=== PATIENT | male | born 1960 | race Caucasian/White ===

== ENCOUNTER 2016-12-20 06:39 | Emergency (ER) | payer MEDICARE ==
[~2016-12-20] VITALS: Ht 172.7 cm; Wt 112.5 kg
[~2016-12-20 06:39] MED LIST: ALPR0.5T6 PO; ALPR1TAB6 PO; AMIT25TA PO; AMIT50TA PO; AMLO10TA2 PO; ASPI81TA9 PO; ATOR40TA59 PO; CHOL400T14 PO; CITA20TA5 PO; CYAN10005 PO; DIPH1TAB PO; DIPH1TAB5 PO; FEXO180T5 PO; FOLI1TAB16 PO; GABA600T2 PO; HYDR-2867 PO; LEVE250T30 PO; LEVE500T56 PO; LIDO2AMP IT; LISI10TA2 PO; MORP15TA3 PO; MORP60CA17 PO; NITR0.4T SL; OMEP20TA PO; OXYC15TA PO; OXYC5TAB PO; OXYM30TA PO; PHEN100C PO; PHEN100C4 PO; POTA20TA82 PO; PREG150C PO; PROAIR HFA8.5 GM INH; TEMA30CA PO; VENTOLIN HFA18 GM INH; WARF1TAB7 PO; WARF2TAB7 PO; WARF4TAB PO; WARF5TAB PO; WARF5TAB7 PO
--- NOTE | 2016-12-20 07:04 | EKG ---
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
--- NOTE | 2016-12-20 07:06 | PHYS DOC ---
Past Medical History Past Medical History: OR, Seizure, Stroke, Other Additional Past Medical Histor: stroke 2008, mi , "seizure activity" Past Surgical History: Knee Replacement, Other Additional Past Surgical Histo: open heart, left knee Smoking: Chew Alcohol Use: None Drug Use: None Adult General Chief Complaint Chief Complaint: SEIZURE HPI HPI Patient is a 56 year old male who presents with complaint is seizure activity this morning. He describes less than 1 minute of jerking and tightening of his extremities and difficulty breathing. States this happened twice this morning. States he has worsening of his chronic left-sided weakness since these episodes today. He denies headache, vision changes, dizziness, numbness, tingling, weakness, nausea, abdominal pain, fever or chills. States in the past 2 weeks he has been dealing with chills, emesis, and diarrhea that has been managed through his primary care doctor. He states he took his evening dose of medications around 1700 last night. Review of Systems Review of Systems Constitutional: Has fever and chills [] Eyes: Denies change in visual acuity, redness, or eye pain [] HENT: Denies nasal congestion or sore throat [] Respiratory: Denies cough or shortness of breath [] Cardiovascular: No additional information not addressed in HPI [] GI: Denies abdominal pain, bloody stools or bloody emesis [] : Denies dysuria or hematuria [] Musculoskeletal: Denies back pain [] Integument: Denies rash or skin lesions [] Neurologic: Denies headache or sensory changes [] Endocrine: Denies polyuria or polydipsia [] Current Medications Current Medications Current Medications Medications (Trade) Dose Ordered Sig/Jocelyn Start Time Stop Time Status Last Admin Dose Admin Acetaminophen (Tylenol) 500 mg 1X ONCE 12/20/16 07:45 12/20/16 07:46 DC 12/20/16 08:02 500 MG Levetiracetam (Keppra) 750 mg 1X ONCE 12/20/16 08:15 12/20/16 08:16 DC Phenytoin Sodium (Dilantin) 300 mg 1X ONCE 12/20/16 08:15 12/20/16 08:16 DC 12/20/16 08:42 300 MG Allergies Allergies Allergies Coded Allergies Type Severity Reaction Last Updated Verified cyclobenzaprine Allergy Intermediate 04/24/16 Yes naproxen Allergy Intermediate 04/24/16 Yes prednisone Allergy Intermediate 04/24/16 Yes Physical Exam Physical Exam Constitutional: Well developed, well nourished, no acute distress, non-toxic appearance. [] HENT: Normocephalic, atraumatic, bilateral external ears normal, oropharynx moist, no oral exudates, nose normal. [] Eyes: PERRLA, EOMI, conjunctiva normal, no discharge. [] Neck: Normal range of motion, no tenderness, supple, no stridor. [] Cardiovascular:Heart rate regular rhythm [] Lungs & Thorax: Bilateral breath sounds clear to auscultation [] Abdomen: Bowel sounds normal, soft, no tenderness. [] Skin: Warm, dry, no erythema, no rash. [] Back: No tenderness, no CVA tenderness. [] Extremities: LLE: No obvious deformity or discoloration; mild tenderness about fibula head and lateral tibial plateau without palpable or visual abnormality; Able to flex/ex/IR/ER hip, knee full rom, ankle df/pf, toes df/pf; No obvious knee joint laxity with stressing; SILT soto/sa/sp/dp/tib distributions; good dp and pt pulses equal bilaterally Neurologic: Alert and oriented X 3, 5-/5 strength of LUE and LLE with 5/5 strength in RUE and RLE, normal sensory function, no focal deficits noted, cranial nerves II through XII intact. [] Psychologic: Affect normal, judgement normal, mood normal. [] Current Patient Data Vital Signs Vital Signs Date Time Temp Pulse Resp B/P Pulse Ox O2 Delivery O2 Flow Rate FiO2 12/20/16 08:00 56 17 157/69 99 Room Air 12/20/16 06:49 98.5 2 98.5 Lab Values Laboratory Tests Test 12/20/16 07:19 White Blood Count 10.0x10^3/uL (4.0-11.0) Red Blood Count 4.26x10^6/uL (4.30-5.70) L Hemoglobin 12.7g/dL (13.0-17.5) L Hematocrit 39.1% (39.0-53.0) Mean Corpuscular Volume 92fL (79-100) Mean Corpuscular Hemoglobin 30pg (25-35) Mean Corpuscular Hemoglobin Concent 33g/dL (31-37) Red Cell Distribution Width 15.3% (11.5-14.5) H Platelet Count 241x10^3/uL (140-400) Neutrophils (%) (Auto) 65% (31-73) Lymphocytes (%) (Auto) 24% (24-48) Monocytes (%) (Auto) 9% (0-9) Eosinophils (%) (Auto) 2% (0-3) Basophils (%) (Auto) 1% (0-3) Neutrophils # (Auto) 6.5x10^3uL (1.8-7.7) Lymphocytes # (Auto) 2.4x10^3/uL (1.0-4.8) Monocytes # (Auto) 0.9x10^3/uL (0.0-1.1) Eosinophils # (Auto) 0.2x10^3/uL (0.0-0.7) Basophils # (Auto) 0.1x10^3/uL (0.0-0.2) Prothrombin Time 23.0SEC (11.7-14.0) H Prothrombin Time INR 2.2 (0.8-1.1) H PTT 37SEC (24-38) Sodium Level 146mmol/L (136-145) H Potassium Level 3.8mmol/L (3.5-5.1) Chloride Level 107mmol/L (98-107) Carbon Dioxide Level 28mmol/L (21-32) Anion Gap 11 (6-14) Blood Urea Nitrogen 11mg/dL (8-26) Creatinine 0.8mg/dL (0.7-1.3) Estimated GFR (Cockcroft-Gault) 99.3 Glucose Level 117mg/dL (70-99) H Calcium Level 8.7mg/dL (8.5-10.1) Total Bilirubin 0.2mg/dL (0.2-1.0) Direct Bilirubin 0.1mg/dL (0.0-0.2) Aspartate Amino Transferase (AST) 27U/L (15-37) Alanine Aminotransferase (ALT) 34U/L (16-63) Alkaline Phosphatase 141U/L (46-116) H Total Protein 7.3g/dL (6.4-8.2) Albumin 3.4g/dL (3.4-5.0) Phenytoin (Dilantin) Level 10.2mcg/mL (10.0-20.0) Phenytoin Last Dose Date 12/19/16 Phenytoin Last Dose Time 1700 Laboratory Tests 12/20/16 07:19 Laboratory Tests 12/20/16 07:19 EKG EKG EKG as interpreted by me as normal sinus rhythm, rate 66, no ST-T changes, normal intervals, no ectopy Radiology/Procedures Radiology/Procedures Head CT without contrast IMPRESSION: 1. Moderate-sized old right cerebral infarct. 2. No new intracranial abnormality is detected. DICTATED and SIGNED BY: LISETTE WHEAT MD DATE: 12/20/16 0749 Left knee xray as interpreted by me as no acute fracture or dislocation Course & Med Decision Making Course & Med Decision Making Pertinent Labs and Imaging studies reviewed. (See chart for details) Workup is unremarkable; including therapeutic phenytoin level. He has no seizure activity while in the ED. He complained of left knee pain and ankle pain upon discharge, and has a neg XR knee. He is ambulatory with a steady gait with cane. His has arrived to take him home. He wishes to take his seizure medications at home and refuses them here. He asks many times for narcotic pain medications for minor pain complaints. I discussed he does not have injuries that require narcotics. Return precautions given. He understands and agrees with plan. Dragon Disclaimer Dragon Disclaimer This electronic medical record was generated, in whole or in part, using a voice recognition dictation system. Departure Departure Impression: Primary Impression: Seizure-like activity Additional Impressions: Left knee pain Left-sided weakness Drug-seeking behavior Disposition: HOME, SELF-CARE Condition: STABLE Referrals: DUY ROBBINS (PCP) Patient Instructions: Seizure, Adult, [id number] Additional Instructions: Follow-up with your primary care doctor and neurologist. Return for any concerns. Problem Qualifiers Additional Impressions: Left knee pain Chronicity: acute Qualified Code: M25.562 - Pain in left knee Maeve RAMIREZ MD Dec 20, 2016 07:06
[2016-12-20 07:31] LABS: BASO # 0.1 x10^3/uL (0.0-0.2); BASO % 1 % (0-3); EOS % 2 % (0-3); HEMATOCRIT 39.1 % (39.0-53.0); HEMOGLOBIN 12.7 g/dL (13.0-17.5); LYMPH # 2.4 x10^3/uL (1.0-4.8); LYMPH % 24 % (24-48); MEAN CORPUSCULAR HEMOGLOBIN 30 pg (25-35); MEAN CORPUSCULAR HGB CONC 33 g/dL (31-37); MEAN CORPUSCULAR VOLUME 92 fL (79-100); MONO % 9 % (0-9); NEUT % 65 % (31-73); PLATELET COUNT 241 x10^3/uL (140-400); RED BLOOD COUNT 4.26 x10^6/uL (4.30-5.70); RED CELL DISTRIBUTION WIDTH 15.3 % (11.5-14.5)
[2016-12-20 07:37] LABS: INR 2.2 (0.8-1.1)
[2016-12-20 07:38] LABS: ANION GAP 11 (6-14); BLOOD UREA NITROGEN 11 mg/dL (8-26); CALCIUM 8.7 mg/dL (8.5-10.1); CARBON DIOXIDE 28 mmol/L (21-32); CHLORIDE 107 mmol/L (98-107); CREATININE 0.8 mg/dL (0.7-1.3); GFR 99.3; GLUCOSE 117 mg/dL (70-99); POTASSIUM 3.8 mmol/L (3.5-5.1); SODIUM 146 mmol/L (136-145)
[2016-12-20 07:45] LABS: ALBUMIN 3.4 g/dL (3.4-5.0); ALK PHOS 141 U/L (46-116); ALT (SGPT) 34 U/L (16-63); AST (SGOT) 27 U/L (15-37); DIRECT BILIRUBIN 0.1 mg/dL (0.0-0.2); TOTAL BILIRUBIN 0.2 mg/dL (0.2-1.0); TOTAL PROTEIN 7.3 g/dL (6.4-8.2)
[2016-12-20] MEDS ORDERED: ACETAMINOPHEN 500 MG TABLET PO ONE (07:45)
--- NOTE | 2016-12-20 07:55 | RAD ---
CT of the head without contrast, 12/20/2016: History: Left-sided weakness after seizure. Comparison is made to a study from 01/20/2016. A large area of encephalomalacia is again noted centered in the right parietal region compatible with an old infarct. The ventricles are within normal limits in size. There is no shift of the midline structures. There is no evidence of acute intracranial hemorrhage or mass effect. IMPRESSION: 1. Moderate-sized old right cerebral infarct. 2. No new intracranial abnormality is detected. PQRS Compliance Statement: One or more of the following individualized dose reduction techniques were utilized for this examination: 1. Automated exposure control 2. Adjustment of the mA and/or kV according to patient size 3. Use of iterative reconstruction technique
[2016-12-20 08:00] VITALS: BP 157/69
[2016-12-20] MEDS ORDERED: PHENYTOIN SODIUM EXTENDED 100 MG CAPSULE PO ONE (08:15)
[2016-12-20] MEDS ORDERED: LEVETIRACETAM 250 MG TABLET. PO ONE (08:15)
--- NOTE | 2016-12-20 08:43 | RAD ---
Indication: Knee surgery one month ago and left knee injury. Time of exam 8:34 AM 3 views left knee demonstrates postop changes of total knee arthroplasty. The prosthetic elements appear to be in good position. No fracture or loosening is detected. Impression: Postop left knee. No acute abnormality is detected.
== END 2016-12-20 09:45 | disposition home or self-care (01) ==
LOC: ER 06:39
DX: R56.9 Unspecified convulsions (principal); G89.29 Other chronic pain; M25.562 Pain in left knee; R53.1 Weakness; R19.7 Diarrhea, unspecified; I25.2 Old myocardial infarction; F17.220 Nicotine dependence, chewing tobacco, uncomplicated; Z76.5 Malingerer [conscious simulation]; Z86.73 Personal history of transient ischemic attack (TIA), and cerebral infarction without residual deficits; Z88.6 Allergy status to analgesic agent; Z88.8 Allergy status to other drugs, medicaments and biological substances
CPT/HCPCS: 36415; 70450; 73562; 80048; 80076; 80185; 85027; 85610; 85730; 93005; 99285-25

== ENCOUNTER 2016-12-22 13:44 | Emergency (ER) | payer MEDICARE ==
[~2016-12-22] VITALS: Ht 175.3 cm; Wt 112.5 kg
[2016-12-22] MEDS ORDERED: ASPIRIN 81 MG TAB.CHEW PO ONE (14:30)
[2016-12-22] MEDS ORDERED: IV NORMAL SALINE 1000ML BAG 1,000 ML IV SCH (14:30)
[2016-12-22] MEDS ORDERED: NITROGLYCERIN SUBLINGUAL 0.4 MG BOTTLE OF 25. SL PRN (14:30)
[2016-12-22] MEDS ORDERED: FENTANYL PF 100 MCG/2 ML VIAL. IV PRN ×2 (14:30→15:30)
--- NOTE | 2016-12-22 14:31 | EKG ---
[facility] [address] [place] [address] Test Date: 2016-12-22 Test Time: 13:51:42 Pat Name: RAMONA WELLS Department: Room: Gender: Male Biztalk Administrator: : 1960 Requested By: ZEENAT WALLACE Order Number: [id number] Reading MD: Billy Bell Measurements Intervals [place] Rate: 66 P: 45 [place]: 140 QRS: 48 QRSD: 92 T: 43 QT: 376 QTc: 396 Interpretive Statements SINUS RHYTHM Electronically Signed On 12-25-2016 10:21:19 STRAIGHT LINE EDGER by Billy Bell
[2016-12-22 14:32] LABS: BASO # 0.1 x10^3/uL (0.0-0.2); BASO % 1 % (0-3); EOS % 1 % (0-3); HEMATOCRIT 40.5 % (39.0-53.0); HEMOGLOBIN 13.3 g/dL (13.0-17.5); LYMPH # 2.2 x10^3/uL (1.0-4.8); LYMPH % 23 % (24-48); MEAN CORPUSCULAR HEMOGLOBIN 30 pg (25-35); MEAN CORPUSCULAR HGB CONC 33 g/dL (31-37); MEAN CORPUSCULAR VOLUME 92 fL (79-100); MONO % 7 % (0-9); NEUT % 68 % (31-73); PLATELET COUNT 235 x10^3/uL (140-400); RED BLOOD COUNT 4.41 x10^6/uL (4.30-5.70); RED CELL DISTRIBUTION WIDTH 14.8 % (11.5-14.5); WHITE BLOOD COUNT 9.6 x10^3/uL (4.0-11.0)
--- NOTE | 2016-12-22 14:44 | RAD ---
Portable chest, 12/22/2016: History: Chest pain Comparison is made to a study from 11/19/2016. The heart is at the upper limits of normal in size. The pulmonary vascularity is normal. No pulmonary infiltrates are seen. There is no evidence of pleural fluid. A surgical plate and screws is evident in the lower cervical spine. IMPRESSION: No acute cardiopulmonary abnormality is detected.
[2016-12-22 15:20] LABS: CREATININE 0.6 mg/dL (0.7-1.3); GFR 138.4; POTASSIUM 4.4 mmol/L (3.5-5.1)
[2016-12-22 15:26] LABS: ALBUMIN 3.4 g/dL (3.4-5.0); DIRECT BILIRUBIN 0.1 mg/dL (0.0-0.2); MAGNESIUM 2.3 mg/dL (1.8-2.4); TOTAL BILIRUBIN 0.3 mg/dL (0.2-1.0); TOTAL PROTEIN 7.8 g/dL (6.4-8.2)
[2016-12-22] MEDS ORDERED: ALPRAZOLAM 0.5 MG TABLET PO PRN (15:30)
[2016-12-22] MEDS ORDERED: ACETAMINOPHEN 500 MG TABLET PO PRN (15:30)
[2016-12-22] MEDS ORDERED: NON FORMULARY ITEM (Albuterol Sulfate (Proair Hfa Inhaler) 1 PUFF) INH PRN (15:30)
[2016-12-22] MEDS ORDERED: TEMAZEPAM 15 MG CAPSULE PO PRN (15:30)
[2016-12-22] MEDS ORDERED: OXYCODONE HCL 15 MG PO PRN (15:30)
[2016-12-22] MEDS ORDERED: hydrALAZINE 20 MG/ML VIAL. IVP PRN (15:30)
[2016-12-22] MEDS ORDERED: OXYCODONE IR 5 MG TABLET. PO PRN (15:30)
[2016-12-22] MEDS ORDERED: ONDANSETRON PF 4 MG/2 ML VIAL. IV PRN (15:30)
[2016-12-22] MEDS ORDERED: ALPRAZOLAM 1 MG TABLET PO PRN (15:30)
[2016-12-22 15:36] LABS: CKMB INDEX 0.6 % (0-4); CKMB MASS 0.7 ng/mL (0.0-3.6)
[2016-12-22 16:00] VITALS: BP 177/74
[2016-12-22] MEDS ORDERED: NON FORMULARY ITEM (Albuterol Sulfate (Ventolin Hfa Inhaler) 2 PUFF) INH SCH (16:00)
--- NOTE | 2016-12-22 16:08 | PHYS DOC ---
Past Medical History Past Medical History: VT, Seizure, Stroke, Other Additional Past Medical Histor: stroke 2008, mi , "seizure activity" Past Surgical History: Knee Replacement, Other Additional Past Surgical Histo: open heart, left knee Alcohol Use: None Drug Use: None Adult General Chief Complaint Chief Complaint: CHEST PAIN HPI HPI Patient is a 56 year old male who presents with complaint of chest pain. Patient is vague about onset of chest pain, however when asked if the chest pain was present when he awoke this morning he states "yes." Patient has history of coronary artery disease and history of stroke. Patient states that he did not want to come to the emergency department, however his home health nurse evaluated him this morning and called EMS to bring patient to the hospital for evaluation. Patient states he has substernal chest pain that radiates to his neck and jaw. Patient has mild shortness of breath but denies nausea or diaphoresis. Patient denies any fevers or productive cough. Patient rates his pain currently is 10/10. The patient states that the pain is pressure- like. Patient has not taken any medications to help with symptoms. Review of Systems Review of Systems Constitutional: Denies fever or chills [] Eyes: Denies change in visual acuity, redness, or eye pain [] HENT: Denies nasal congestion or sore throat [] Respiratory: Denies cough or shortness of breath [] Cardiovascular: Chest pain [] GI: Denies abdominal pain, nausea, vomiting, bloody stools or diarrhea [] : Denies dysuria or hematuria [] Musculoskeletal: Denies back pain or joint pain [] Integument: Denies rash or skin lesions [] Neurologic: Denies headache, focal weakness or sensory changes [] Endocrine: Denies polyuria or polydipsia [] Current Medications Current Medications Current Medications Medications (Trade) Dose Ordered Sig/Jocelyn Start Time Stop Time Status Last Admin Dose Admin Acetaminophen (Tylenol) 500 mg PRN QID PRN 12/22/16 15:30 12/22/16 16:33 DC Alprazolam (Xanax) 1 mg PRN Q6HRS PRN 12/22/16 15:30 12/22/16 16:33 DC Amitriptyline HCl (Elavil) 50 mg QHS 12/22/16 21:00 12/22/16 21:00 DC Aspirin (Children'S Aspirin) 324 mg 1X ONCE 1/27/17 14:30 12/22/16 14:31 DC 12/22/16 14:35 324 MG Atorvastatin Calcium (Lipitor) 40 mg DAILY 12/23/16 09:00 12/23/16 09:00 DC Citalopram Hydrobromide (Celexa) 20 mg DAILY 12/23/16 09:00 12/23/16 09:00 DC Cyanocobalamin (Vitamin B-12) 1,000 mcg DAILY 12/23/16 09:00 12/23/16 09:00 DC Fentanyl Citrate (Fentanyl 2ml Vial) 50 mcg PRN Q2HR PRN 12/22/16 15:30 12/22/16 16:33 DC Fentanyl Citrate 50 mcg 50 mcg PRN Q15MIN PRN 12/22/16 14:30 12/22/16 16:33 DC 12/22/16 14:37 50 MCG Folic Acid (Folic Acid) 1 mg DAILY 12/23/16 09:00 12/23/16 09:00 DC Hydralazine HCl (Apresoline) 10 mg QID 12/22/16 17:00 12/22/16 17:00 DC Levetiracetam (Keppra) 750 mg BID 12/22/16 21:00 12/22/16 21:00 DC Lisinopril (Prinivil) 10 mg DAILY 12/23/16 09:00 12/23/16 09:00 DC Morphine Sulfate (Ms Contin) 15 mg BID 12/22/16 21:00 12/22/16 21:00 DC Nitroglycerin (Nitrostat) 0.4 mg PRN Q5MIN PRN 12/22/16 14:30 12/22/16 16:33 DC Non-Formulary Medication 150 mg BID 12/22/16 21:00 12/22/16 21:00 DC Ondansetron HCl (Zofran) 4 mg PRN Q6HRS PRN 12/22/16 15:30 12/22/16 16:33 DC Oxycodone HCl (Roxicodone) 10 mg PRN Q6HRS PRN 12/22/16 15:30 12/22/16 16:33 DC Phenytoin Sodium (Dilantin) 100 mg BID 12/22/16 21:00 12/22/16 21:00 DC Sodium Chloride (Iv Sodium Chloride 0.9% 1000ml Bag) 1,000 ml @ 100 mls/hr Q10H 12/22/16 14:30 12/22/16 16:33 DC 12/22/16 14:35 100 MLS/HR Temazepam (Restoril) 30 mg HS PRN 12/22/16 15:30 12/22/16 16:33 DC Warfarin Sodium (Coumadin) 5 mg DAILY 12/23/16 09:00 12/23/16 09:00 DC Allergies Allergies Allergies Coded Allergies Type Severity Reaction Last Updated Verified cyclobenzaprine Allergy Intermediate 04/24/16 Yes naproxen Allergy Intermediate 04/24/16 Yes prednisone Allergy Intermediate 04/24/16 Yes Physical Exam Physical Exam Constitutional: Alert, afebrile, appears in chronically poor health. [] HENT: Normocephalic, atraumatic, bilateral external ears normal, oropharynx moist, no oral exudates, nose normal. [] Eyes: PERRLA, EOMI, conjunctiva normal, no discharge. [] Neck: Normal range of motion, no tenderness, supple, no stridor. [] Cardiovascular:Heart rate regular rhythm, no murmur [] Lungs & Thorax: Bilateral breath sounds clear to auscultation [] Abdomen: Bowel sounds normal, soft, no tenderness, no masses, no pulsatile masses. [] Skin: Warm, dry, no erythema, no rash. [] Back: No tenderness, no CVA tenderness. [] Extremities: No tenderness, no cyanosis, no clubbing, ROM intact, no edema. [] Neurologic: Alert and oriented X 3, normal motor function, normal sensory function, no focal deficits noted. [] Current Patient Data Vital Signs Vital Signs Date Time Temp Pulse Resp B/P Pulse Ox O2 Delivery O2 Flow Rate FiO2 12/22/16 16:00 56 17 177/74 97 Room Air 12/22/16 14:01 98.6 98.6 Lab Values Laboratory Tests Test 12/22/16 14:05 12/22/16 14:59 White Blood Count 9.6x10^3/uL (4.0-11.0) Red Blood Count 4.41x10^6/uL (4.30-5.70) Hemoglobin 13.3g/dL (13.0-17.5) Hematocrit 40.5% (39.0-53.0) Mean Corpuscular Volume 92fL (79-100) Mean Corpuscular Hemoglobin 30pg (25-35) Mean Corpuscular Hemoglobin Concent 33g/dL (31-37) Red Cell Distribution Width 14.8% (11.5-14.5) H Platelet Count 235x10^3/uL (140-400) Neutrophils (%) (Auto) 68% (31-73) Lymphocytes (%) (Auto) 23% (24-48) L Monocytes (%) (Auto) 7% (0-9) Eosinophils (%) (Auto) 1% (0-3) Basophils (%) (Auto) 1% (0-3) Neutrophils # (Auto) 6.5x10^3uL (1.8-7.7) Lymphocytes # (Auto) 2.2x10^3/uL (1.0-4.8) Monocytes # (Auto) 0.7x10^3/uL (0.0-1.1) Eosinophils # (Auto) 0.1x10^3/uL (0.0-0.7) Basophils # (Auto) 0.1x10^3/uL (0.0-0.2) Sodium Level 142mmol/L (136-145) Potassium Level 4.4mmol/L (3.5-5.1) Chloride Level 106mmol/L (98-107) Carbon Dioxide Level 29mmol/L (21-32) Anion Gap 7 (6-14) Blood Urea Nitrogen 8mg/dL (8-26) Creatinine 0.6mg/dL (0.7-1.3) L Estimated GFR (Cockcroft-Gault) 138.4 Glucose Level 87mg/dL (70-99) Calcium Level 9.0mg/dL (8.5-10.1) Magnesium Level 2.3mg/dL (1.8-2.4) Total Bilirubin 0.3mg/dL (0.2-1.0) Direct Bilirubin 0.1mg/dL (0.0-0.2) Aspartate Amino Transferase (AST) 38U/L (15-37) H Alanine Aminotransferase (ALT) 46U/L (16-63) Alkaline Phosphatase 149U/L (46-116) H Creatine Kinase 120U/L (39-308) Creatine Kinase MB (Mass) 0.7ng/mL (0.0-3.6) Creatine Kinase MB Relative Index 0.6% (0-4) Troponin I Quantitative < 0.017ng/mL (0.000-0.055) [id number]-Nkr-D-Type Natriuretic Peptide 62pg/mL (0-124) Total Protein 7.8g/dL (6.4-8.2) Albumin 3.4g/dL (3.4-5.0) Lipase 246U/L (73-393) Laboratory Tests 12/22/16 14:05 Laboratory Tests 12/22/16 14:59 EKG EKG Interpreted by me: Heart rate 66, sinus rhythm, normal intervals, normal axis, no acute ST/T-wave abnormalities present [] Radiology/Procedures Radiology/Procedures [facility] [address] [place] [address] IMAGING REPORT Signed PATIENT: RAMONA WELLS ACCOUNT: [id number] : 1960 LOCATION: ER AGE: 56 SEX: M EXAM STATUS: PRE ER ORD. PHYSICIAN: ZEENAT WALLACE MD REASON: chest pain PROCEDURE: PORTABLE CHEST 1V Portable chest, 12/22/2016: History: Chest pain Comparison is made to a study from 11/19/2016. The heart is at the upper limits of normal in size. The pulmonary vascularity is normal. No pulmonary infiltrates are seen. There is no evidence of pleural fluid. A surgical plate and screws is evident in the lower cervical spine. IMPRESSION: No acute cardiopulmonary abnormality is detected. DICTATED and SIGNED BY: LISETTE WHEAT MD DATE: 12/22/16 1441 CC: DUY ROBBINS; ZEENAT WALLACE MD ~ [] Course & Med Decision Making Course & Med Decision Making Pertinent Labs and Imaging studies reviewed. (See chart for details) The patient was given nitroglycerin and fentanyl in the emergency department. On reevaluation patient states that his pain has resolved at this time. Due to age and risk factors I spoke with patient regarding admission to the hospital. Patient states that he does not want to be admitted to the hospital was to go home. I did speak with Dr. Trimble as patient was recently admitted to the hospital one month ago. The patient had an MPI stress test that was negative. It was documented that the patient also displayed drug-seeking behavior at that time. After speaking with Dr. Trimble, she stated that the patient does not require admission and she has concerns that the patient may be manipulative. I sat with the patient and spoke with him again regarding treatment plan. The patient states that he does not want to be admitted to the hospital and is not concerned that he will have any issues of heart attack. One set of cardiac enzymes was drawn as the patient's blood was drawn after 4 hours from onset of symptoms. I recommended that the patient follow-up with Dr. Hall of cardiology in the next 3 days as the patient is currently pain-free and does not wish to be admitted to the hospital. Advised that the patient return to emergency department for any worsening symptoms. Patient voiced understanding and in agreement with treatment plan. Dragon Disclaimer Dragon Disclaimer This electronic medical record was generated, in whole or in part, using a voice recognition dictation system. Departure Departure Impression: Primary Impression: Chest pain Disposition: 01 HOME, SELF-CARE Condition: IMPROVED Referrals: DUY ROBBINS (PCP) HERBERTH HALL MD Patient Instructions: Chest Pain (Nonspecific) Additional Instructions: Your blood work and EKG did not show any evidence of a heart attack on today's visit. It is recommended due to your history that you follow-up closely with Dr. Hall of cardiology in the next 3 days. Return to the emergency department for any worsening symptoms. Problem Qualifiers Primary Impression: Chest pain Chest pain type: unspecified Qualified Code: R07.9 - Chest pain, unspecified ZEENAT WALLACE MD Dec 22, 2016 16:08
[2016-12-22] MEDS ORDERED: HYDRALAZINE 10 MG TABLET PO SCH (17:00)
[2016-12-22] MEDS ORDERED: NON FORMULARY ITEM (Gabapentin 600 MG) PO SCH (21:00)
[2016-12-22] MEDS ORDERED: MORPHINE ER 15 MG TABLET.ER PO SCH (21:00)
[2016-12-22] MEDS ORDERED: AMITRIPTYLINE HCL 50 MG TABLET PO SCH (21:00)
[2016-12-22] MEDS ORDERED: PHENYTOIN SODIUM EXTENDED 100 MG CAPSULE PO SCH (21:00)
[2016-12-22] MEDS ORDERED: PREGABALIN 150 MG PO SCH (21:00)
[2016-12-22] MEDS ORDERED: LEVETIRACETAM 250 MG TABLET. PO SCH (21:00)
[2016-12-23] MEDS ORDERED: LISINOPRIL 10 MG TABLET PO SCH (09:00)
[2016-12-23] MEDS ORDERED: FOLIC ACID 1 MG TABLET PO SCH (09:00)
[2016-12-23] MEDS ORDERED: CITALOPRAM 20 MG TABLET. PO SCH (09:00)
[2016-12-23] MEDS ORDERED: CYANOCOBALAMIN (VITAMIN B-12) 1,000 MCG TABLET. PO SCH (09:00)
[2016-12-23] MEDS ORDERED: ATORVASTATIN CALCIUM 40 MG TABLET. PO SCH (09:00)
[2016-12-23] MEDS ORDERED: WARFARIN 5 MG TABLET. PO SCH (09:00)
== END 2016-12-22 16:30 | disposition home or self-care (01) ==
LOC: ER 13:44
DX: R07.89 Other chest pain (principal); R06.02 Shortness of breath; I25.10 Atherosclerotic heart disease of native coronary artery without angina pectoris; I25.2 Old myocardial infarction; Z86.73 Personal history of transient ischemic attack (TIA), and cerebral infarction without residual deficits; Z98.890 Other specified postprocedural states; Z79.01 Long term (current) use of anticoagulants; Z79.899 Other long term (current) drug therapy; Z88.8 Allergy status to other drugs, medicaments and biological substances
CPT/HCPCS: 36415; 71010; 80048; 80076; 82553; 83690; 83735; 83880; 84484; 85027; 93005; 96361; 96374; 99285; J3010; J7030

== ENCOUNTER 2017-02-06 08:44 | Inpatient (IN) | payer MEDICARE ==
[~2017-02-06] VITALS: Ht 167.6 cm; Wt 99.8 kg
[2017-02-06] MEDS ORDERED: LORAZEPAM 2 MG/ML VIAL ONE (09:03)
[2017-02-06 09:20] LABS: BASO % 0 % (0-3); EOS % 0 % (0-3); HEMATOCRIT 38.2 % (39.0-53.0); HEMOGLOBIN 12.5 g/dL (13.0-17.5); LYMPH # 0.7 x10^3/uL (1.0-4.8); LYMPH % 6 % (24-48); MEAN CORPUSCULAR HEMOGLOBIN 30 pg (25-35); MEAN CORPUSCULAR HGB CONC 33 g/dL (31-37); MEAN CORPUSCULAR VOLUME 90 fL (79-100); MONO % 5 % (0-9); NEUT % 89 % (31-73); PLATELET COUNT 243 x10^3/uL (140-400); RED BLOOD COUNT 4.24 x10^6/uL (4.30-5.70); RED CELL DISTRIBUTION WIDTH 14.2 % (11.5-14.5); WHITE BLOOD COUNT 11.9 x10^3/uL (4.0-11.0)
--- NOTE | 2017-02-06 09:23 | PHYS DOC ---
Past Medical History Past Medical History: CVA, [place], Seizure, Stroke, Other Additional Past Medical Histor: stroke 2008, mi , "seizure activity" Past Surgical History: Coronary Bypass Surgery, Knee Replacement, Other Additional Past Surgical Histo: L KNEE Alcohol Use: None Drug Use: None Adult General Chief Complaint Chief Complaint: ALTERED MENTAL STATUS HPI HPI 56-year-old male presenting to the emergency department after being found by his spouse down in the living room unresponsive. On upon EMS arrival the patient was combative moving all extremities. It is unclear how long the patient was down for. He was admitted to our hospital approximately 2 months ago for confusion. He had EEG monitoring which did not show any evidence of seizure waveforms. Upon arrival to our emergency department the patient is combative moving all extremities and eyes spontaneously localizes to painful stimuli and speaks in understandable words but is nonsensical. Onset today. Location brain. Duration intermittent. No alleviating factor. Review of systems is negative for chest pain shortness of breath nausea vomiting diarrhea. All other review of systems is negative unless otherwise noted in history of present illness. Review of Systems Review of Systems SEE ABOVE. Current Medications Current Medications Current Medications Medications (Trade) Dose Ordered Sig/Jocelyn Start Time Stop Time Status Last Admin Dose Admin Lorazepam (Ativan) 2 mg STK-MED ONCE 02/06/17 09:03 02/06/17 09:04 DC Allergies Allergies Allergies Coded Allergies Type Severity Reaction Last Updated Verified cyclobenzaprine Allergy Intermediate 04/24/16 Yes naproxen Allergy Intermediate 04/24/16 Yes prednisone Allergy Intermediate 04/24/16 Yes Physical Exam Physical Exam Constitutional: Well developed, well nourished, no acute distress, non-toxic appearance. HENT: Normocephalic, atraumatic, bilateral external ears normal, oropharynx moist, no oral exudates, nose normal. [] Eyes: PERRLA, EOMI, conjunctiva normal, no discharge. Neck: Normal range of motion, no tenderness, supple, no stridor. [] Cardiovascular:Heart rate regular rhythm, no murmur Lungs & Thorax: Bilateral breath sounds clear to auscultation [] Abdomen: Bowel sounds normal, soft, no tenderness, no masses, no pulsatile masses. Skin: Warm, dry, no erythema, no rash. [] Back: No tenderness, no CVA tenderness. Extremities: No tenderness, no cyanosis, no clubbing, ROM intact, no edema. [] Neurologic: Mental status: combative moving all extremities spontaneously localizes to painful stimuli and speaks in understandable words but is nonsensical. Cranial nerves: Extraocular movements intact, eyebrows rosetta bilaterally smile symmetric, uvula elevation, shoulder shrug intact, tongue protrusion normal DTRs: 2+ Sensation: unable to assess Strength: 5/5 in upper and lower extremities bilaterally Psychologic: Affect normal, judgement normal, mood normal. Current Patient Data Vital Signs Vital Signs Date Time Temp Pulse Resp B/P Pulse Ox O2 Delivery O2 Flow Rate FiO2 02/06/17 08:44 97.9 107 22 201/84 99 Room Air 97.9 Lab Values Laboratory Tests Test 02/06/17 08:52 02/06/17 09:00 Glucose (Fingerstick) 154mg/dL (70-99) H White Blood Count 11.9x10^3/uL (4.0-11.0) H Red Blood Count 4.24x10^6/uL (4.30-5.70) L Hemoglobin 12.5g/dL (13.0-17.5) L Hematocrit 38.2% (39.0-53.0) L Mean Corpuscular Volume 90fL (79-100) Mean Corpuscular Hemoglobin 30pg (25-35) Mean Corpuscular Hemoglobin Concent 33g/dL (31-37) Red Cell Distribution Width 14.2% (11.5-14.5) Platelet Count 243x10^3/uL (140-400) Neutrophils (%) (Auto) 89% (31-73) H Lymphocytes (%) (Auto) 6% (24-48) L Monocytes (%) (Auto) 5% (0-9) Eosinophils (%) (Auto) 0% (0-3) Basophils (%) (Auto) 0% (0-3) Neutrophils # (Auto) 10.5x10^3uL (1.8-7.7) H Lymphocytes # (Auto) 0.7x10^3/uL (1.0-4.8) L Monocytes # (Auto) 0.6x10^3/uL (0.0-1.1) Eosinophils # (Auto) 0.0x10^3/uL (0.0-0.7) Basophils # (Auto) 0.0x10^3/uL (0.0-0.2) Segmented Neutrophils % 84% (35-66) H Band Neutrophils % 6% (0-9) Lymphocytes % 5% (24-48) L Monocytes % 5% (0-10) Platelet Estimate Adequate (ADEQUATE) Sodium Level 140mmol/L (136-145) Potassium Level 4.1mmol/L (3.5-5.1) Chloride Level 102mmol/L (98-107) Carbon Dioxide Level 27mmol/L (21-32) Anion Gap 11 (6-14) Blood Urea Nitrogen 9mg/dL (8-26) Creatinine 0.7mg/dL (0.7-1.3) Estimated GFR (Cockcroft-Gault) 115.8 Glucose Level 167mg/dL (70-99) H Serum Osmolality 290mOsm/Kg (279-304) Calcium Level 9.0mg/dL (8.5-10.1) Total Bilirubin 0.3mg/dL (0.2-1.0) Direct Bilirubin < 0.1mg/dL (0.0-0.2) Aspartate Amino Transferase (AST) 35U/L (15-37) Alanine Aminotransferase (ALT) 32U/L (16-63) Alkaline Phosphatase 190U/L (46-116) H Troponin I Quantitative < 0.017ng/mL (0.000-0.055) Total Protein 8.0g/dL (6.4-8.2) Albumin 3.4g/dL (3.4-5.0) Lipase 124U/L (73-393) Salicylates Level < 2.8mg/dL (2.8-20.0) L Salicylate Last Dose Date Unknown Salicylate Last Dose Time Unknown Acetaminophen Level < 2.00mcg/ml (10-30) L Acetaminophen Last Dose Date Unknow Acetaminophen Last Dose Time Unknown Laboratory Tests 02/06/17 09:00 Laboratory Tests 02/06/17 09:00 EKG EKG [] Radiology/Procedures Radiology/Procedures [] Course & Med Decision Making Course & Med Decision Making Pertinent Labs and Imaging studies reviewed. (See chart for details) [] 48-year-old male presenting to the emergency department with confusion. On arrival the patient was afebrile with mild tachycardia and hypertension. The patient's blood pressure likely represents his agitated state has he was moving around and exerting himself during the blood pressure measurements. Blood work obtained. Patient with mild leukocytosis. Hemoglobin mildly anemic. Chemistry panel unremarkable. Blood glucose normal. Head CT unremarkable. Patient was given 2mg of Ativan in the emergency department which seemed to bring his tachycardia down and blood pressure as well. He seemed to calm down. Given the patient's mental state, the patient was subsequently admitted to our hospital for further evaluation workup and care. Neurology consult placed. Dragon Disclaimer Dragon Disclaimer This electronic medical record was generated, in whole or in part, using a voice recognition dictation system. Departure Departure Impression: Primary Impression: Altered mental status Disposition: ADMITTED INPATIENT Admitting Physician: Maninder Qureshi Condition: STABLE Referrals: DUY ROBBINS (PCP) GARY COLON MD Feb 06, 2017 09:23
[2017-02-06 09:31] LABS: ANION GAP 11 (6-14); BLOOD UREA NITROGEN 9 mg/dL (8-26); CARBON DIOXIDE 27 mmol/L (21-32); CHLORIDE 102 mmol/L (98-107); CREATININE 0.7 mg/dL (0.7-1.3); GFR 115.8; GLUCOSE 167 mg/dL (70-99); POTASSIUM 4.1 mmol/L (3.5-5.1); SODIUM 140 mmol/L (136-145)
[2017-02-06 09:36] LABS: ALBUMIN 3.4 g/dL (3.4-5.0); ALK PHOS 190 U/L (46-116); ALT (SGPT) 32 U/L (16-63); AST (SGOT) 35 U/L (15-37); DIRECT BILIRUBIN < 0.1 mg/dL (0.0-0.2); TOTAL BILIRUBIN 0.3 mg/dL (0.2-1.0)
[2017-02-06] MEDS ORDERED: MORPHINE SULFATE 2 MG/ML DISP.SYRIN. IV PRN (09:45)
[2017-02-06] MEDS ORDERED: LORAZEPAM 2 MG/ML VIAL IV ONE (09:45)
[2017-02-06] MEDS ORDERED: ONDANSETRON PF 4 MG/2 ML VIAL. IV PRN ×2 (09:45→14:15)
--- NOTE | 2017-02-06 09:45 | RAD ---
Indication: Altered mental status. Technique: Noncontrast CT head was obtained. Comparison is from December 23, 2016. One or more of the following individualized dose reduction techniques were utilized for this examination: 1. Automated exposure control 2. Adjustment of the mA and/or kV according to patient size 3. Use of iterative reconstruction technique Findings: Large area of encephalomalacia in a right MCA distribution is similar to prior. There is no CT evidence of an acute infarct. There is ex vacuo dilation of the right lateral ventricle. The ventricles and sulci are within normal limits for age. There is no acute intracranial hemorrhage or extra-axial fluid collection. There is no mass effect or midline shift. Campos-white differentiation is preserved. Paranasal sinuses and mastoid air cells are clear. Impression: 1. No acute intracranial findings. 2. Stable examination. Large area of encephalomalacia involving the right frontal and parietal lobes.
[2017-02-06 10:26] LABS: BILIRUBIN,URINE NEGATIVE (NEG); GLUCOSE,URINE NEGATIVE (NEG); NITRITE,URINE NEGATIVE (NEG); PH,URINE 7.5; PROTEIN,URINE NEGATIVE (NEG-TRACE); UROBILINOGEN,URINE 0.2 mg/dL (0.2 mg/dL)
--- NOTE | 2017-02-06 10:29 | ACF ---
Admission Forms Criteria MENTAL STATUS CHANGE Clinical Indications for Inpatient Care (Place 'X' for any and all applicable criteria): Ongoing inpatient care may be needed for ANY ONE of the following(1)(2)(3)(5)(6) : [X]I. Suspected serious etiology (eg, medical disorder, MACHINE REPAIRER MAINTENANCE event) of mental status change [ ]II. Danger to self or others not manageable at lower level of care [ ]III. Grave disability (eg, inability to perform self care necessary at lower level of care) [ ]IV. Agitation or inappropriate behavior interfering with care for primary condition (eg, attempting to discontinue lines or drains prematurely, unable to cooperate with respiratory care) [ ]V. Delirium [A] [D][E] as described by ANY ONE of the following(26): [ ]a) Delirium due to alcohol or sedative [F] withdrawal [ ]b) Delirium of uncertain etiology that has not responded to appropriate empiric treatment [ ]c) Delirium that prevents performance of a life-sustaining function (eg, feeding or hydrating oneself) [ ]. General contraindications and/or Inappropriate clinical situations for Observational Care in patients with Mental Status Change, when ANY ONE of the following is required: [ ]a) Prediction of prolongation of LOS based on ANY ONE of the following may be considered as a contraindication for observational care 2, 3, 4, 5, 6, 7, 8, 9, 10, 11 [ ]i) Age > 65 yrs. [ ]ii) Patient arriving by ambulance [ ]iii) Patient with high acuity [ ]iv) Patient requiring vital sign monitoring [ ]v) Patient on IV medication [ ]b) Systolic blood pressures 180mmHg 3,12 [ ]c) Patient with altered mental status including delirium and other alteration of consciousness, (3) [ ]d) Patient whose discharge disposition will be to a residential home or rehabilitation home should not be managed in Emergency Department Observation Unit. CMS rule requires 3 days hospital stay before such placement.3,13 [ ]e) Patient with failure to thrive due to broad array of etiologies 3,16,17 [ ]f) Inability to ambulate 3,14 Extended stay beyond goal length of stay for the primary condition may be needed until ALL of the following are present(3)(5): [ ]a) Underlying medical etiology of mental status change is absent, or has been established and adequately treated [ ]b) Danger to self or others is absent or manageable at lower level of care. [ ]c) Behavior crisis management, including physical or chemical restraints, is not required or available at lower level of car [ ]d) Substance or alcohol withdrawal is absent or manageable at lower level of care. [ ]e) Behavioral symptoms (eg, agitation, somnolence, inappropriate behavior) are absent, or are manageable at lower level of care. The original [facility] content created by [facility] has been revised. The portions of the content which have been revised are identified through the use of italic text or in bold, and [facility] has neither reviewed nor approved the modified material. All other unmodified content is copyright [facility]. Please see references footnoted in the original [facility] edition 2016 Admission Criteria Met?: Yes MEGAN MEANS Feb 06, 2017 10:29
[2017-02-06 10:33] LABS: BARBITURATES NEG (NEG); BENZODIAZEPINES NEG (NEG); CANNABINOIDS NEG (NEG); COCAINE NEG (NEG); ETHANOL, URINE NEG (NEG); METHADONE NEG (NEG); OPIATES POS (NEG); PHENCYCLIDINE NEG (NEG)
[2017-02-06 10:36] LABS: BACTERIA,URINE 0 /HPF (0-FEW); SQUAMOUS EPITHELIAL CELL,UR FEW /LPF; WBC,URINE OCC /HPF (0-4)
[2017-02-06 10:55] LABS: PLT ESTIMATE ADEQUATE (ADEQUATE)
[2017-02-06 12:00] VITALS: BP 193/76
[2017-02-06] MEDS ORDERED: NALOXONE 0.4 MG/ML VIAL. IV ONE (14:00)
--- NOTE | 2017-02-06 14:00 | PDOC1 ---
History and Physical Past Medical History Cardiovascular: HTN Pulmonary: Bronchitis Heme/Onc: Anemia NOS Psych: No pertinent hx Past Surgical History Past Surgical History: Total knee replacement Family History Family History: No Significant, Other Social History ALCOHOL: none Drugs: None Current Problem List Problem List Problems Medical Problems: (1) Altered mental status Status: Acute Current Medications Current Medications Current Medications Medications (Trade) Dose Ordered Sig/Jocelyn Start Time Stop Time Status Last Admin Dose Admin Lorazepam (Ativan) 2 mg 1X ONCE 02/06/17 09:45 02/06/17 09:46 DC 02/06/17 09:02 2 MG Morphine Sulfate 2 mg PRN Q2HR PRN 02/06/17 09:45 02/07/17 09:44 Ondansetron HCl (Zofran) 4 mg PRN Q8HRS PRN 02/06/17 09:45 02/07/17 09:44 Allergies Allergies Allergies Coded Allergies Type Severity Reaction Last Updated Verified cyclobenzaprine Allergy Intermediate 04/24/16 Yes naproxen Allergy Intermediate 04/24/16 Yes prednisone Allergy Intermediate 04/24/16 Yes ROS Review of System not able to obtain due to severity Physical Exam Physical Exam GEN.: No apparent distress. somnolent, drowsy HEENT: Head is normocephalic, atraumatic NECK: Supple. no jvd LUNGS: Clear to auscultation. normal airflow HEART: RRR, S1, S2 present. Peripheral pulses intact ABDOMEN: Soft, nontender. Positive bowel sounds. EXTREMITIES: Without any cyanosis. NEUROLOGIC: lethargic, not following commands. PSYCHIATRIC: SKIN: Vitals Vitals Vital Signs Date Time Temp Pulse Resp B/P Pulse Ox O2 Delivery O2 Flow Rate FiO2 02/06/17 12:00 98.0 106 24 193/76 97 Room Air 98.0 Labs Labs Laboratory Tests Test 02/06/17 08:52 02/06/17 09:00 02/06/17 09:45 02/06/17 10:17 Glucose (Fingerstick) 154mg/dL (70-99) White Blood Count 11.9x10^3/uL (4.0-11.0) Red Blood Count 4.24x10^6/uL (4.30-5.70) Hemoglobin 12.5g/dL (13.0-17.5) Hematocrit 38.2% (39.0-53.0) Mean Corpuscular Volume 90fL (79-100) Mean Corpuscular Hemoglobin 30pg (25-35) Mean Corpuscular Hemoglobin Concent 33g/dL (31-37) Red Cell Distribution Width 14.2% (11.5-14.5) Platelet Count 243x10^3/uL (140-400) Neutrophils (%) (Auto) 89% (31-73) Lymphocytes (%) (Auto) 6% (24-48) Monocytes (%) (Auto) 5% (0-9) Eosinophils (%) (Auto) 0% (0-3) Basophils (%) (Auto) 0% (0-3) Neutrophils # (Auto) 10.5x10^3uL (1.8-7.7) Lymphocytes # (Auto) 0.7x10^3/uL (1.0-4.8) Monocytes # (Auto) 0.6x10^3/uL (0.0-1.1) Eosinophils # (Auto) 0.0x10^3/uL (0.0-0.7) Basophils # (Auto) 0.0x10^3/uL (0.0-0.2) Segmented Neutrophils % 84% (35-66) Band Neutrophils % 6% (0-9) Lymphocytes % 5% (24-48) Monocytes % 5% (0-10) Platelet Estimate Adequate (ADEQUATE) Sodium Level 140mmol/L (136-145) Potassium Level 4.1mmol/L (3.5-5.1) Chloride Level 102mmol/L (98-107) Carbon Dioxide Level 27mmol/L (21-32) Anion Gap 11 (6-14) Blood Urea Nitrogen 9mg/dL (8-26) Creatinine 0.7mg/dL (0.7-1.3) Estimated GFR (Cockcroft-Gault) 115.8 Glucose Level 167mg/dL (70-99) Serum Osmolality 290mOsm/Kg (279-304) Calcium Level 9.0mg/dL (8.5-10.1) Total Bilirubin 0.3mg/dL (0.2-1.0) Direct Bilirubin < 0.1mg/dL (0.0-0.2) Aspartate Amino Transf (AST/SGOT) 35U/L (15-37) Alanine Aminotransferase (ALT/SGPT) 32U/L (16-63) Alkaline Phosphatase 190U/L (46-116) Troponin I Quantitative < 0.017ng/mL (0.000-0.055) Total Protein 8.0g/dL (6.4-8.2) Albumin 3.4g/dL (3.4-5.0) Lipase 124U/L (73-393) Salicylates Level < 2.8mg/dL (2.8-20.0) Salicylate Last Dose Date Unknown Salicylate Last Dose Time Unknown Acetaminophen Level < 2.00mcg/ml (10-30) Acetaminophen Last Dose Date Unknow Acetaminophen Last Dose Time Unknown Ammonia 15mcmol/L (11-34) Urine Collection Type U cath Urine Color Yellow Urine Clarity Clear Urine pH 7.5 Urine Specific [place] 1.015 Urine Protein Negativemg/dL (NEG-TRACE) Urine Glucose (UA) Negativemg/dL (NEG) Urine Ketones (Stick) Negativemg/dL (NEG) Urine Blood Negative (NEG) Urine Nitrite Negative (NEG) Urine Bilirubin Negative (NEG) Urine Urobilinogen Dipstick 0.2mg/dL (0.2 mg/dL) Urine Leukocyte Esterase Negative (NEG) Urine RBC 3-5/HPF (0-2) Urine WBC Occ/HPF (0-4) Urine Squamous Epithelial Cells Few/LPF Urine Renal Epithelial Cells Few/LPF Urine Bacteria 0/HPF (0-FEW) Urine Opiates Screen Pos (NEG) Urine Methadone Screen Neg (NEG) Urine Barbiturates Neg (NEG) Urine Phencyclidine Screen Neg (NEG) Urine Amphetamine/Methamphetamine Neg (NEG) Urine Benzodiazepines Screen Neg (NEG) Urine Cocaine Screen Neg (NEG) Urine Cannabinoids Screen Neg (NEG) Urine Ethyl Alcohol Neg (NEG) Laboratory Tests Test 02/06/17 08:52 02/06/17 09:00 02/06/17 09:45 02/06/17 10:17 Glucose (Fingerstick) 154mg/dL (70-99) White Blood Count 11.9x10^3/uL (4.0-11.0) Red Blood Count 4.24x10^6/uL (4.30-5.70) Hemoglobin 12.5g/dL (13.0-17.5) Hematocrit 38.2% (39.0-53.0) Mean Corpuscular Volume 90fL (79-100) Mean Corpuscular Hemoglobin 30pg (25-35) Mean Corpuscular Hemoglobin Concent 33g/dL (31-37) Red Cell Distribution Width 14.2% (11.5-14.5) Platelet Count 243x10^3/uL (140-400) Neutrophils (%) (Auto) 89% (31-73) Lymphocytes (%) (Auto) 6% (24-48) Monocytes (%) (Auto) 5% (0-9) Eosinophils (%) (Auto) 0% (0-3) Basophils (%) (Auto) 0% (0-3) Neutrophils # (Auto) 10.5x10^3uL (1.8-7.7) Lymphocytes # (Auto) 0.7x10^3/uL (1.0-4.8) Monocytes # (Auto) 0.6x10^3/uL (0.0-1.1) Eosinophils # (Auto) 0.0x10^3/uL (0.0-0.7) Basophils # (Auto) 0.0x10^3/uL (0.0-0.2) Segmented Neutrophils % 84% (35-66) Band Neutrophils % 6% (0-9) Lymphocytes % 5% (24-48) Monocytes % 5% (0-10) Platelet Estimate Adequate (ADEQUATE) Sodium Level 140mmol/L (136-145) Potassium Level 4.1mmol/L (3.5-5.1) Chloride Level 102mmol/L (98-107) Carbon Dioxide Level 27mmol/L (21-32) Anion Gap 11 (6-14) Blood Urea Nitrogen 9mg/dL (8-26) Creatinine 0.7mg/dL (0.7-1.3) Estimated GFR (Cockcroft-Gault) 115.8 Glucose Level 167mg/dL (70-99) Serum Osmolality 290mOsm/Kg (279-304) Calcium Level 9.0mg/dL (8.5-10.1) Total Bilirubin 0.3mg/dL (0.2-1.0) Direct Bilirubin < 0.1mg/dL (0.0-0.2) Aspartate Amino Transf (AST/SGOT) 35U/L (15-37) Alanine Aminotransferase (ALT/SGPT) 32U/L (16-63) Alkaline Phosphatase 190U/L (46-116) Troponin I Quantitative < 0.017ng/mL (0.000-0.055) Total Protein 8.0g/dL (6.4-8.2) Albumin 3.4g/dL (3.4-5.0) Lipase 124U/L (73-393) Salicylates Level < 2.8mg/dL (2.8-20.0) Salicylate Last Dose Date Unknown Salicylate Last Dose Time Unknown Acetaminophen Level < 2.00mcg/ml (10-30) Acetaminophen Last Dose Date Unknow Acetaminophen Last Dose Time Unknown Ammonia 15mcmol/L (11-34) Urine Collection Type U cath Urine Color Yellow Urine Clarity Clear Urine pH 7.5 Urine Specific [place] 1.015 Urine Protein Negativemg/dL (NEG-TRACE) Urine Glucose (UA) Negativemg/dL (NEG) Urine Ketones (Stick) Negativemg/dL (NEG) Urine Blood Negative (NEG) Urine Nitrite Negative (NEG) Urine Bilirubin Negative (NEG) Urine Urobilinogen Dipstick 0.2mg/dL (0.2 mg/dL) Urine Leukocyte Esterase Negative (NEG) Urine RBC 3-5/HPF (0-2) Urine WBC Occ/HPF (0-4) Urine Squamous Epithelial Cells Few/LPF Urine Renal Epithelial Cells Few/LPF Urine Bacteria 0/HPF (0-FEW) Urine Opiates Screen Pos (NEG) Urine Methadone Screen Neg (NEG) Urine Barbiturates Neg (NEG) Urine Phencyclidine Screen Neg (NEG) Urine Amphetamine/Methamphetamine Neg (NEG) Urine Benzodiazepines Screen Neg (NEG) Urine Cocaine Screen Neg (NEG) Urine Cannabinoids Screen Neg (NEG) Urine Ethyl Alcohol Neg (NEG) VTE Prophylaxis Ordered VTE Prophylaxis Devices: Yes VTE Pharmacological Prophylaxi: Yes ANGEL FOUNTAIN MD Feb 06, 2017 14:00
[2017-02-06] MEDS ORDERED: PROM25TA10 PO (14:06)
[2017-02-06] MEDS ORDERED: DULO60CA6 PO (14:06)
[2017-02-06] MEDS ORDERED: ONDA8TAB9 PO (14:06)
[2017-02-06] MEDS ORDERED: DIPH1TAB PO (14:06)
[2017-02-06] MEDS ORDERED: ALBUTEROL SULFATE 2.5 MG/3 ML NEBU. NEB PRN (14:15)
[2017-02-06] MEDS ORDERED: hydrALAZINE 20 MG/ML VIAL. IVP PRN (14:15)
[2017-02-06] MEDS ORDERED: ACETAMINOPHEN 325 MG TABLET. PO PRN (14:15)
--- NOTE | 2017-02-06 14:29 | PDOC2 ---
NEUROLOGY CONSULT Date of Admission Date of Admission DATE: 02/06/17 TIME: 14:22 Reason for Consult Reason for Consult: Altered mental status Referring Physician Referring Physician: Dr. Qureshi PCP: Dr. Rocha Source Source: Chart review History of Present Illness History of Present Illness The patient is a 56-year-old right-handed male admitted with altered mental status. He had a stroke in 2009 leaving him with left-hemiparesis and has had seizures since then. He was admitted in July with several seizures. Routine EEG was negative. Long-term monitoring, 08/21-, demonstrated 2 clinical seizures not accompanied by epileptic abnormalities, and he was thought to have possible psychogenic nonepileptic seizures. He was admitted in August for more seizures, EEG then was negative. He was back in November of this year for seizures. Dr. Marley saw him for all of these admissions and feels that these are nonepileptic seizures. He was continued on levetiracetam and phenytoin. He returns this morning found down in the living room unresponsive. He was combative, moving all extremities. He remained combative in the emergency department, speaking nonsense. He was combative. He was given some Ativan, which did calm him down some. I did leave a message with the patient's . Past Medical History Cardiovascular: HTN, Hyperlipidemia, Other ( deep vein thrombosis on warfarin) Pulmonary: Asthma CENTRAL NERVOUS SYSTEM: CVA, Periperal neuropathy, Seizure GI: GERD, Irritable bowel disease, Other (dysphagia) Heme/Onc: Cancer (colon) Psych: Anxiety, Depression Musculoskeletal: low back pain (DDD), Osteoarthritis Rheumatologic: Fibromyalgia ENT: Other (Hearing loss) Past Surgical History Past Surgical History: Cholecystectomy, Total knee replacement (left), Colon Resection Family History Family History: No pertinent hx Social History Social History , otherwise unattainable Current Medications Current Medications Current Medications Lorazepam (Ativan) 2 mg STK-MED ONCE .ROUTE ; Start 02/06/17 at 09:03; Stop at 09:04; Status DC Ondansetron HCl (Zofran) 4 mg PRN Q8HRS PRN IV NAUSEA/VOMITING; Start 02/06/17 at 09:45; Stop 02/07/17 at 09:44 Morphine Sulfate 2 mg PRN Q2HR PRN IV PAIN; Start 02/06/17 at 09:45; Stop 02/07 at 09:44 Lorazepam (Ativan) 2 mg 1X ONCE IV Last administered on 02/06/17 09:02; Start 02/06/17 at 09:45; Stop 02/06/17 at 09:46; Status DC Naloxone HCl (Narcan) 0.4 mg 1X ONCE IV Last administered on 02/06/17 14:10; Start 02/06/17 at 14:00; Stop 02/06/17 at 14:05; Status DC Acetaminophen (Tylenol) 325 mg PRN Q6HRS PRN PO MILD PAIN / TEMP; Start at 14:15 Acetaminophen/ Hydrocodone Bitart (Lortab 5/325) 1 tab PRN Q6HRS PRN PO MODERATE TO SEVERE PAIN; Start 02/06/17 at 14:15 Hydralazine HCl (Apresoline) 10 mg PRN Q4HRS PRN IVP ELEVATED BP, SEE COMMENTS ; Start 02/06/17 at 14:15 Ondansetron HCl (Zofran) 4 mg PRN Q8HRS PRN IV NAUSEA/VOMITING; Start 02/06/17 at 14:15 Albuterol Sulfate (Ventolin Neb Soln) 2.5 mg PRN Q4HRS PRN NEB SHORTNESS OF BREATH; Start 02/06/17 at 14:15 Active Scripts Active Keppra (Levetiracetam) 250 Mg Tablet 750 Mg PO BID Dilantin (Phenytoin Sodium Extended) 100 Mg Capsule 3 Cap PO BID Vitamin B-12 (Cyanocobalamin (Vitamin B-12)) 1,000 Mcg Tablet 1,000 Mcg PO DAILY Gabapentin 600 Mg Tablet 600 Mg PO TID Alprazolam 0.5 Mg Tablet 0.5 Mg PO PRN Q6HRS PRN Reported Lomotil Tablet (Diphenoxylate Hcl/Atropine) 1 Each Tablet 1 Tab PO Q6HRS Promethazine Hcl 25 Mg Tablet 1 Tab PO PRN Q6HRS Zofran (Ondansetron Hcl) 8 Mg Tablet 8 Mg PO TID PRN PRN Cymbalta (Duloxetine Hcl) 60 Mg Capsule.dr 1 Cap PO DAILY Morphine Sulfate Er (Morphine Sulfate) 15 Mg Tablet.er 4 Tab PO BID Oxycodone Hcl 15 Mg Tablet 15 Mg PO Q6HRS PRN Alprazolam 1 Mg Tablet 1 Mg PO PRN Q6HRS PRN Coumadin (Warfarin Sodium) 5 Mg Tablet 1 Tab PO DAILY Amitriptyline Hcl 50 Mg Tablet 1 Tab PO QHS Folic Acid 1 Mg Tablet 1 Tab PO DAILY Ventolin Hfa Inhaler (Albuterol Sulfate) 18 Gm Hfa.aer.ad 2 Puff INH Q4HRS Temazepam 30 Mg Capsule 30 Mg PO HS PRN Proair Hfa Inhaler (Albuterol Sulfate) 8.5 Gm Hfa.aer.ad 1 Puff INH PRN Q6HRS PRN Lyrica (Pregabalin) 150 Mg Capsule 150 Mg PO BID 30 Days Lisinopril 10 Mg Tablet 10 Mg PO DAILY Hydralazine Hcl 10 Mg Tablet 10 Mg PO QID Citalopram Hbr (Citalopram Hydrobromide) 20 Mg Tablet 20 Mg PO DAILY Atorvastatin Calcium 40 Mg Tablet 40 Mg PO DAILY Allergies Allergies: Coded Allergies: cyclobenzaprine (Verified Allergy, Intermediate, 04/24/16) naproxen (Verified Allergy, Intermediate, 04/24/16) prednisone (Verified Allergy, Intermediate, 04/24/16) ROS Review of System Unobtainable Physical Exam Physical Examination PHYSICAL EXAMINATION: Vital signs: see above. General appearance is normal and in no acute distress. HEENT: Normocephalic and nontraumatic. Eyes, nose, ears, and throat are unremarkable. Neck is supple. No lymphadenopathy. No bruits are heard over the carotid artery. No crepitus. NEUROLOGIC: He appears to be sleeping, but awakens easily. He does not know why he is here. He talks about having strokes and seizures in the past. He tends to perseverate. Cranial examination reveals full visual griffiths of threat, equally reactive pupils, and intact extract elements. There is no facial asymmetry. Reflexes are one plus with flexor plant responses. He moves all 4 extremities, but is a little weaker on the left. He does not cooperate with formal muscle strength testing, cerebellar, or sensory testing. Vitals VITALS Vital Signs Date Time Temp Pulse Resp B/P Pulse Ox O2 Delivery O2 Flow Rate FiO2 02/06/17 12:00 98.0 106 24 193/76 97 Room Air 98.0 Labs Labs Laboratory Tests Test 02/06/17 08:52 02/06/17 09:00 02/06/17 09:45 02/06/17 10:17 Glucose (Fingerstick) 154mg/dL (70-99) White Blood Count 11.9x10^3/uL (4.0-11.0) Red Blood Count 4.24x10^6/uL (4.30-5.70) Hemoglobin 12.5g/dL (13.0-17.5) Hematocrit 38.2% (39.0-53.0) Mean Corpuscular Volume 90fL (79-100) Mean Corpuscular Hemoglobin 30pg (25-35) Mean Corpuscular Hemoglobin Concent 33g/dL (31-37) Red Cell Distribution Width 14.2% (11.5-14.5) Platelet Count 243x10^3/uL (140-400) Neutrophils (%) (Auto) 89% (31-73) Lymphocytes (%) (Auto) 6% (24-48) Monocytes (%) (Auto) 5% (0-9) Eosinophils (%) (Auto) 0% (0-3) Basophils (%) (Auto) 0% (0-3) Neutrophils # (Auto) 10.5x10^3uL (1.8-7.7) Lymphocytes # (Auto) 0.7x10^3/uL (1.0-4.8) Monocytes # (Auto) 0.6x10^3/uL (0.0-1.1) Eosinophils # (Auto) 0.0x10^3/uL (0.0-0.7) Basophils # (Auto) 0.0x10^3/uL (0.0-0.2) Segmented Neutrophils % 84% (35-66) Band Neutrophils % 6% (0-9) Lymphocytes % 5% (24-48) Monocytes % 5% (0-10) Platelet Estimate Adequate (ADEQUATE) Sodium Level 140mmol/L (136-145) Potassium Level 4.1mmol/L (3.5-5.1) Chloride Level 102mmol/L (98-107) Carbon Dioxide Level 27mmol/L (21-32) Anion Gap 11 (6-14) Blood Urea Nitrogen 9mg/dL (8-26) Creatinine 0.7mg/dL (0.7-1.3) Estimated GFR (Cockcroft-Gault) 115.8 Glucose Level 167mg/dL (70-99) Serum Osmolality 290mOsm/Kg (279-304) Calcium Level 9.0mg/dL (8.5-10.1) Total Bilirubin 0.3mg/dL (0.2-1.0) Direct Bilirubin < 0.1mg/dL (0.0-0.2) Aspartate Amino Transf (AST/SGOT) 35U/L (15-37) Alanine Aminotransferase (ALT/SGPT) 32U/L (16-63) Alkaline Phosphatase 190U/L (46-116) Troponin I Quantitative < 0.017ng/mL (0.000-0.055) Total Protein 8.0g/dL (6.4-8.2) Albumin 3.4g/dL (3.4-5.0) Lipase 124U/L (73-393) Salicylates Level < 2.8mg/dL (2.8-20.0) Salicylate Last Dose Date Unknown Salicylate Last Dose Time Unknown Acetaminophen Level < 2.00mcg/ml (10-30) Acetaminophen Last Dose Date Unknow Acetaminophen Last Dose Time Unknown Ammonia 15mcmol/L (11-34) Urine Collection Type U cath Urine Color Yellow Urine Clarity Clear Urine pH 7.5 Urine Specific [place] 1.015 Urine Protein Negativemg/dL (NEG-TRACE) Urine Glucose (UA) Negativemg/dL (NEG) Urine Ketones (Stick) Negativemg/dL (NEG) Urine Blood Negative (NEG) Urine Nitrite Negative (NEG) Urine Bilirubin Negative (NEG) Urine Urobilinogen Dipstick 0.2mg/dL (0.2 mg/dL) Urine Leukocyte Esterase Negative (NEG) Urine RBC 3-5/HPF (0-2) Urine WBC Occ/HPF (0-4) Urine Squamous Epithelial Cells Few/LPF Urine Renal Epithelial Cells Few/LPF Urine Bacteria 0/HPF (0-FEW) Urine Opiates Screen Pos (NEG) Urine Methadone Screen Neg (NEG) Urine Barbiturates Neg (NEG) Urine Phencyclidine Screen Neg (NEG) Urine Amphetamine/Methamphetamine Neg (NEG) Urine Benzodiazepines Screen Neg (NEG) Urine Cocaine Screen Neg (NEG) Urine Cannabinoids Screen Neg (NEG) Urine Ethyl Alcohol Neg (NEG) Laboratory Tests Test 02/06/17 08:52 02/06/17 09:00 02/06/17 09:45 02/06/17 10:17 Glucose (Fingerstick) 154mg/dL (70-99) White Blood Count 11.9x10^3/uL (4.0-11.0) Red Blood Count 4.24x10^6/uL (4.30-5.70) Hemoglobin 12.5g/dL (13.0-17.5) Hematocrit 38.2% (39.0-53.0) Mean Corpuscular Volume 90fL (79-100) Mean Corpuscular Hemoglobin 30pg (25-35) Mean Corpuscular Hemoglobin Concent 33g/dL (31-37) Red Cell Distribution Width 14.2% (11.5-14.5) Platelet Count 243x10^3/uL (140-400) Neutrophils (%) (Auto) 89% (31-73) Lymphocytes (%) (Auto) 6% (24-48) Monocytes (%) (Auto) 5% (0-9) Eosinophils (%) (Auto) 0% (0-3) Basophils (%) (Auto) 0% (0-3) Neutrophils # (Auto) 10.5x10^3uL (1.8-7.7) Lymphocytes # (Auto) 0.7x10^3/uL (1.0-4.8) Monocytes # (Auto) 0.6x10^3/uL (0.0-1.1) Eosinophils # (Auto) 0.0x10^3/uL (0.0-0.7) Basophils # (Auto) 0.0x10^3/uL (0.0-0.2) Segmented Neutrophils % 84% (35-66) Band Neutrophils % 6% (0-9) Lymphocytes % 5% (24-48) Monocytes % 5% (0-10) Platelet Estimate Adequate (ADEQUATE) Sodium Level 140mmol/L (136-145) Potassium Level 4.1mmol/L (3.5-5.1) Chloride Level 102mmol/L (98-107) Carbon Dioxide Level 27mmol/L (21-32) Anion Gap 11 (6-14) Blood Urea Nitrogen 9mg/dL (8-26) Creatinine 0.7mg/dL (0.7-1.3) Estimated GFR (Cockcroft-Gault) 115.8 Glucose Level 167mg/dL (70-99) Serum Osmolality 290mOsm/Kg (279-304) Calcium Level 9.0mg/dL (8.5-10.1) Total Bilirubin 0.3mg/dL (0.2-1.0) Direct Bilirubin < 0.1mg/dL (0.0-0.2) Aspartate Amino Transf (AST/SGOT) 35U/L (15-37) Alanine Aminotransferase (ALT/SGPT) 32U/L (16-63) Alkaline Phosphatase 190U/L (46-116) Troponin I Quantitative < 0.017ng/mL (0.000-0.055) Total Protein 8.0g/dL (6.4-8.2) Albumin 3.4g/dL (3.4-5.0) Lipase 124U/L (73-393) Salicylates Level < 2.8mg/dL (2.8-20.0) Salicylate Last Dose Date Unknown Salicylate Last Dose Time Unknown Acetaminophen Level < 2.00mcg/ml (10-30) Acetaminophen Last Dose Date Unknow Acetaminophen Last Dose Time Unknown Ammonia 15mcmol/L (11-34) Urine Collection Type U cath Urine Color Yellow Urine Clarity Clear Urine pH 7.5 Urine Specific [place] 1.015 Urine Protein Negativemg/dL (NEG-TRACE) Urine Glucose (UA) Negativemg/dL (NEG) Urine Ketones (Stick) Negativemg/dL (NEG) Urine Blood Negative (NEG) Urine Nitrite Negative (NEG) Urine Bilirubin Negative (NEG) Urine Urobilinogen Dipstick 0.2mg/dL (0.2 mg/dL) Urine Leukocyte Esterase Negative (NEG) Urine RBC 3-5/HPF (0-2) Urine WBC Occ/HPF (0-4) Urine Squamous Epithelial Cells Few/LPF Urine Renal Epithelial Cells Few/LPF Urine Bacteria 0/HPF (0-FEW) Urine Opiates Screen Pos (NEG) Urine Methadone Screen Neg (NEG) Urine Barbiturates Neg (NEG) Urine Phencyclidine Screen Neg (NEG) Urine Amphetamine/Methamphetamine Neg (NEG) Urine Benzodiazepines Screen Neg (NEG) Urine Cocaine Screen Neg (NEG) Urine Cannabinoids Screen Neg (NEG) Urine Ethyl Alcohol Neg (NEG) Images Images Head CT: Findings: Large area of encephalomalacia in a right MCA distribution is similar to prior. There is no CT evidence of an acute infarct. There is ex vacuo dilation of the right lateral ventricle. The ventricles and sulci are within normal limits for age. There is no acute intracranial hemorrhage or extra-axial fluid collection. There is no mass effect or midline shift. Campos-white differentiation is preserved. Paranasal sinuses and mastoid air cells are clear. Impression: 1. No acute intracranial findings. 2. Stable examination. Large area of encephalomalacia involving the right frontal and parietal lobes. Assessment/Plan Assessment/Plan Impression: Seizures, thought to be psychogenic nonepileptic History of right middle cerebral artery stroke No evidence of acute central nervous system infection Chronic narcotic use, he did receive Narcan Recommendations: He has had several negative EEG studies, but given the prolonged confusion, I will get yet another one Hold on lumbar puncture Supportive care I will continue his anticonvulsant, levetiracetam, IV, but hold on the Dilantin. Check Dilantin level and other labs. Thank you for letting me help with the patient's care. ANJALI PELAYO MD Feb 06, 2017 14:29
[2017-02-06] MEDS ORDERED: LORA0.5T PO (14:34)
[2017-02-06] MEDS ORDERED: MORP15TA PO (14:34)
[2017-02-06] MEDS ORDERED: MORP60CA17 PO (14:34)
[2017-02-06 14:41] VITALS: BP 202/75
[2017-02-06] MEDS ORDERED: TEMAZEPAM 15 MG CAPSULE PO PRN (14:45)
[2017-02-06] MEDS ORDERED: LEVE500T56 PO (14:50)
[2017-02-06] MEDS: NORMAL SALINE IV SCH ×2 (15:11→23:41)
[2017-02-06] MEDS: LEVETIRACETAM IV SCH ×2 (15:11→23:41)
[2017-02-06 15:30] VITALS: BP 161/100
[2017-02-06] MEDS ORDERED: PROMETHAZINE 12.5 MG TABLET. PO PRN (15:45)
[2017-02-06] MEDS: FOLIC ACID 1 MG TABLET PO SCH (16:00)
[2017-02-06] MEDS: CYANOCOBALAMIN (VITAMIN B-12) 1,000 MCG TABLET. PO SCH (16:00)
[2017-02-06] MEDS: CITALOPRAM 20 MG TABLET. PO SCH (17:15)
[2017-02-06] MEDS: HYDRALAZINE 10 MG TABLET PO SCH ×2 (17:18→20:07)
[2017-02-06] MEDS: DULOXETINE HCL 30 MG CAPSULE.DR. PO SCH (17:18)
[2017-02-06] MEDS: LISINOPRIL 10 MG TABLET PO SCH (17:19)
[2017-02-06] MEDS ORDERED: DIPHENOXYLATE/ATROPINE TABLET. PO SCH (18:00)
[2017-02-06] MEDS ORDERED: DIPHENOXYLATE/ATROPINE TABLET. PO PRN (18:00)
[2017-02-06 18:29] LABS: INR 3.8 (0.8-1.1); PROTHROMBIN TIME PATIENT 35.5 SEC (11.7-14.0)
[2017-02-06 19:10] VITALS: BP 177/81
[2017-02-06] MEDS: AMITRIPTYLINE HCL 50 MG TABLET PO SCH (20:09)
[2017-02-06] MEDS: PREGABALIN 75 MG CAPSULE PO SCH (20:09)
[2017-02-06] MEDS: MORPHINE ER 30 MG TABLET.ER PO SCH (20:09)
[2017-02-06] MEDS: ATORVASTATIN CALCIUM 40 MG TABLET. PO SCH (20:10)
[2017-02-06 20:18] LABS: FOLATE 17.09 ng/ml (3.2-20.0)
[2017-02-06] MEDS ORDERED: PHENYTOIN SODIUM EXTENDED 100 MG CAPSULE PO SCH (21:00)
[2017-02-06] MEDS ORDERED: GABAPENTIN 300 MG CAPSULE. PO SCH (21:00)
--- NOTE | 2017-02-06 21:49 | HP ---
ADMIT DATE: 02/06/2017 CHIEF COMPLAINT: Altered mental status. HISTORY OF PRESENT ILLNESS: A 56-year-old old male patient brought to the hospital with altered mental status. As per the ER report, it was difficult to wake him up; however, after some time, he had episodes of agitation in the ER. Most of the history obtained from the ER notes and previous H and Ps. Reportedly, the patient has history of psychogenic nonepileptic seizures in the past and also home medications are Keppra and Dilantin. It is not sure whether the patient was complaint with the medications or not. Also, he is on several medications for his degenerative disease, especially narcotics. The patient has been opening his eyes; however he is falling into sleep immediately and not able to have conversations. However, he is hemodynamically stable and able to maintain his airway. PAST MEDICAL HISTORY: Hypertension, hyperlipidemia, history of DVT on warfarin, asthma, CVA, peripheral neuropathy, seizures, irritable bowel syndrome, colon cancer, depression and fibromyalgia. PAST SURGICAL HISTORY: Total knee replacement, colon resection and colostomy. REVIEW OF SYSTEMS: CONSTITUTIONAL: No fever or chills. EYES: No recent vision changes. SKIN: No rash or itching. CARDIOVASCULAR: No chest pain, syncope, palpitations or edema. RESPIRATORY: No shortness of breath, cough. GASTROINTESTINAL: No nausea, vomiting, diarrhea or abdominal pain. NEUROLOGICAL: No headache, paralysis. ENDOCRINOLOGIC: No cold or heat intolerance. GENITOURINARY: No burning with urination, no urgency. MUSCULOSKELETAL: No back pain or joint pain. LYMPHATICS: No enlarged nodes. PSYCHIATRIC: No anxiety or depression. PHYSICAL EXAM: GENERAL: No apparent distress. HEENT: Head normocephalic, atraumatic. NECK: Supple. LUNGS: Clear to auscultation. HEART: Regular rate and rhythm; S1, S2 present; pulses intact. ABDOMEN: Soft and positive bowel sounds. EXTREMITIES: No cyanosis or edema. NEUROLOGIC: Normal speech and normal tone; alert and oriented. PSYCHIATRIC: Normal affect, normal mood. SKIN: No ulceration. LABORATORY DATA: Sodium 140, potassium 4.1, chloride 102, carbon dioxide 21, anion gap 11, BUN is 9, creatinine is 0.70, ____ 115. Hematology: WBC is 11.9, hemoglobin is 12.5, MCV is 90, neutrophils 89%. His toxicology, positive for opiates. Rest of the toxicology negative. Urine, specific gravity 1.010, protein is negative, ketone is negative, blood negative, nitrites negative. IMAGING STUDIES: A head CT, no acute process. No intracranial process seen. ASSESSMENT: 1. Suspected seizure-like activity, possible psychogenic, nonepileptic based on prior history. 2. History of cerebrovascular accident. 3. Hypertension. 4. Chronic narcotic use for degenerative disk disease. 5. Hyperlipidemia. 6. History of DVTs, on warfarin. PLAN: 1. The patient has been admitted to step-down unit and Neurology has been consulted. I will try one time IV Narcan. Recommend to hold any IV narcotics of IV benzodiazepines at this time. 2. Neurology will order Dilantin levels and also start him IV Keppra at this time. 3. No family member immediately available at the time of examination. 4. I did review his old records. 5. Discussed with RN, we will continue all his home medications. 6. I was not able to verify his EKG. 7. Pharmacy to dose warfarin. INR goal is 2-3. 8. Continue lisinopril and folic acid and Cymbalta. 9. Prognosis is guarded. ANGEL FOUNTAIN MD DR: SANDRITA/zee JOB#: [id number] / [id number] BRITTANIE
[2017-02-06 23:10] VITALS: BP 143/74
[2017-02-07 03:10] VITALS: BP 166/73
[2017-02-07] MEDS: MORPHINE IR 15 MG TABLET PO PRN ×3 (03:50→18:15)
[2017-02-07 05:31] LABS: BASO # 0.1 x10^3/uL (0.0-0.2); BASO % 1 % (0-3); EOS % 1 % (0-3); HEMATOCRIT 35.4 % (39.0-53.0); HEMOGLOBIN 11.9 g/dL (13.0-17.5); LYMPH # 2.7 x10^3/uL (1.0-4.8); LYMPH % 27 % (24-48); MEAN CORPUSCULAR HEMOGLOBIN 31 pg (25-35); MEAN CORPUSCULAR HGB CONC 34 g/dL (31-37); MEAN CORPUSCULAR VOLUME 92 fL (79-100); MONO % 10 % (0-9); NEUT % 61 % (31-73); PLATELET COUNT 239 x10^3/uL (140-400); RED BLOOD COUNT 3.87 x10^6/uL (4.30-5.70); RED CELL DISTRIBUTION WIDTH 14.3 % (11.5-14.5)
[2017-02-07 05:41] LABS: CALCIUM 8.8 mg/dL (8.5-10.1); CREATININE 0.7 mg/dL (0.7-1.3); GFR 115.8; POTASSIUM 3.2 mmol/L (3.5-5.1)
[2017-02-07 07:00] VITALS: BP 117/63
[2017-02-07] MEDS: GABAPENTIN 300 MG CAPSULE. PO SCH ×3 (08:40→21:01)
[2017-02-07] MEDS: DULOXETINE HCL 30 MG CAPSULE.DR. PO SCH (08:40)
[2017-02-07] MEDS: FOLIC ACID 1 MG TABLET PO SCH (08:40)
[2017-02-07] MEDS: CYANOCOBALAMIN (VITAMIN B-12) 1,000 MCG TABLET. PO SCH (08:40)
[2017-02-07] MEDS: PREGABALIN 75 MG CAPSULE PO SCH ×2 (08:40→21:01)
[2017-02-07] MEDS: CITALOPRAM 20 MG TABLET. PO SCH (08:41)
[2017-02-07] MEDS: HYDRALAZINE 10 MG TABLET PO SCH ×4 (08:41→21:02)
[2017-02-07] MEDS: LISINOPRIL 10 MG TABLET PO SCH (08:41)
[2017-02-07] MEDS: MORPHINE ER 30 MG TABLET.ER PO SCH ×2 (08:42→21:03)
[2017-02-07] MEDS: PHENYTOIN SODIUM EXTENDED 100 MG CAPSULE PO SCH ×2 (09:24→21:02)
[2017-02-07] MEDS: LEVETIRACETAM 500 MG TABLET PO SCH ×2 (09:24→21:00)
--- NOTE | 2017-02-07 10:33 | PDOC ---
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 EEG this morning yet again is normal. History of right middle cerebral artery stroke No evidence of acute central nervous system infection Chronic narcotic use, he did receive Narcan. Plan Hold on lumbar puncture Supportive care Swith levetiracetam to PO I am going to start a slow Dilantin taper, starting him back on it now at 200 mg BID with plans to remove 100 mg daily every month. Consider outpatient psychiatry consult Subjective No complaints Objective Vital Signs Date Time Temp Pulse Resp B/P Pulse Ox O2 Delivery O2 Flow Rate FiO2 02/07/17 08:42 94 Room Air 02/07/17 08:41 73 117/63 02/07/17 07:00 96.7 17 96.7 Intake and Output 02/07/17 07:00 Intake Total 2087.5 ml Output Total 1425 ml Balance 662.5 ml Intake Oral 1980 ml IV Total 107.5 ml Output Urine Total 1425 ml # Voids 1 # Bowel Movements 1 PHYSICAL EXAM He seemed sleepy but alerts Alert. Oriented to place and person. PERRL. EOMI. CN: no focal findings. Muscle tone: normal. Muscle strength: 4/5 left hemiparesis DTR: 2+ Plantar reflex: flexor Gait: not examined in bed. Sensory exam: no abnormal findings. No cerebellar signs elicited. Review of Relevant I have reviewed the following items luis (where applicable) has been applied. Labs Laboratory Tests Test 02/06/17 08:52 02/06/17 09:00 02/06/17 09:45 02/06/17 10:17 Glucose (Fingerstick) 154mg/dL (70-99) White Blood Count 11.9x10^3/uL (4.0-11.0) Red Blood Count 4.24x10^6/uL (4.30-5.70) Hemoglobin 12.5g/dL (13.0-17.5) Hematocrit 38.2% (39.0-53.0) Mean Corpuscular Volume 90fL (79-100) Mean Corpuscular Hemoglobin 30pg (25-35) Mean Corpuscular Hemoglobin Concent 33g/dL (31-37) Red Cell Distribution Width 14.2% (11.5-14.5) Platelet Count 243x10^3/uL (140-400) Neutrophils (%) (Auto) 89% (31-73) Lymphocytes (%) (Auto) 6% (24-48) Monocytes (%) (Auto) 5% (0-9) Eosinophils (%) (Auto) 0% (0-3) Basophils (%) (Auto) 0% (0-3) Neutrophils # (Auto) 10.5x10^3uL (1.8-7.7) Lymphocytes # (Auto) 0.7x10^3/uL (1.0-4.8) Monocytes # (Auto) 0.6x10^3/uL (0.0-1.1) Eosinophils # (Auto) 0.0x10^3/uL (0.0-0.7) Basophils # (Auto) 0.0x10^3/uL (0.0-0.2) Segmented Neutrophils % 84% (35-66) Band Neutrophils % 6% (0-9) Lymphocytes % 5% (24-48) Monocytes % 5% (0-10) Platelet Estimate Adequate (ADEQUATE) Sodium Level 140mmol/L (136-145) Potassium Level 4.1mmol/L (3.5-5.1) Chloride Level 102mmol/L (98-107) Carbon Dioxide Level 27mmol/L (21-32) Anion Gap 11 (6-14) Blood Urea Nitrogen 9mg/dL (8-26) Creatinine 0.7mg/dL (0.7-1.3) Estimated GFR (Cockcroft-Gault) 115.8 Glucose Level 167mg/dL (70-99) Serum Osmolality 290mOsm/Kg (279-304) Calcium Level 9.0mg/dL (8.5-10.1) Total Bilirubin 0.3mg/dL (0.2-1.0) Direct Bilirubin < 0.1mg/dL (0.0-0.2) Aspartate Amino Transf (AST/SGOT) 35U/L (15-37) Alanine Aminotransferase (ALT/SGPT) 32U/L (16-63) Alkaline Phosphatase 190U/L (46-116) Troponin I Quantitative < 0.017ng/mL (0.000-0.055) Total Protein 8.0g/dL (6.4-8.2) Albumin 3.4g/dL (3.4-5.0) Lipase 124U/L (73-393) Salicylates Level < 2.8mg/dL (2.8-20.0) Salicylate Last Dose Date Unknown Salicylate Last Dose Time Unknown Acetaminophen Level < 2.00mcg/ml (10-30) Acetaminophen Last Dose Date Unknow Acetaminophen Last Dose Time Unknown Ammonia 15mcmol/L (11-34) Urine Collection Type U cath Urine Color Yellow Urine Clarity Clear Urine pH 7.5 Urine Specific Clare 1.015 Urine Protein Negativemg/dL (NEG-TRACE) Urine Glucose (UA) Negativemg/dL (NEG) Urine Ketones (Stick) Negativemg/dL (NEG) Urine Blood Negative (NEG) Urine Nitrite Negative (NEG) Urine Bilirubin Negative (NEG) Urine Urobilinogen Dipstick 0.2mg/dL (0.2 mg/dL) Urine Leukocyte Esterase Negative (NEG) Urine RBC 3-5/HPF (0-2) Urine WBC Occ/HPF (0-4) Urine Squamous Epithelial Cells Few/LPF Urine Renal Epithelial Cells Few/LPF Urine Bacteria 0/HPF (0-FEW) Urine Opiates Screen Pos (NEG) Urine Methadone Screen Neg (NEG) Urine Barbiturates Neg (NEG) Urine Phencyclidine Screen Neg (NEG) Urine Amphetamine/Methamphetamine Neg (NEG) Urine Benzodiazepines Screen Neg (NEG) Urine Cocaine Screen Neg (NEG) Urine Cannabinoids Screen Neg (NEG) Urine Ethyl Alcohol Neg (NEG) Test 02/06/17 17:55 02/07/17 04:35 Erythrocyte Sedimentation Rate 47 (0-15) Prothrombin Time 35.5SEC (11.7-14.0) Prothromb Time International Ratio 3.8 (0.8-1.1) Troponin I Quantitative 0.021ng/mL (0.000-0.055) < 0.017ng/mL (0.000-0.055) Vitamin B12 Level 306pg/mL (247-911) Serum Folate 17.09ng/ml (3.2-20.0) Thyroid Stimulating Hormone (TSH) 0.692uIU/mL (0.358-3.74) Phenytoin (Dilantin) Level 12.7mcg/mL (10.0-20.0) Phenytoin Last Dose Date Unk Phenytoin Last Dose Time Unk White Blood Count 10.0x10^3/uL (4.0-11.0) Red Blood Count 3.87x10^6/uL (4.30-5.70) Hemoglobin 11.9g/dL (13.0-17.5) Hematocrit 35.4% (39.0-53.0) Mean Corpuscular Volume 92fL (79-100) Mean Corpuscular Hemoglobin 31pg (25-35) Mean Corpuscular Hemoglobin Concent 34g/dL (31-37) Red Cell Distribution Width 14.3% (11.5-14.5) Platelet Count 239x10^3/uL (140-400) Neutrophils (%) (Auto) 61% (31-73) Lymphocytes (%) (Auto) 27% (24-48) Monocytes (%) (Auto) 10% (0-9) Eosinophils (%) (Auto) 1% (0-3) Basophils (%) (Auto) 1% (0-3) Neutrophils # (Auto) 6.1x10^3uL (1.8-7.7) Lymphocytes # (Auto) 2.7x10^3/uL (1.0-4.8) Monocytes # (Auto) 1.0x10^3/uL (0.0-1.1) Eosinophils # (Auto) 0.1x10^3/uL (0.0-0.7) Basophils # (Auto) 0.1x10^3/uL (0.0-0.2) Sodium Level 143mmol/L (136-145) Potassium Level 3.2mmol/L (3.5-5.1) Chloride Level 105mmol/L (98-107) Carbon Dioxide Level 28mmol/L (21-32) Anion Gap 10 (6-14) Blood Urea Nitrogen 11mg/dL (8-26) Creatinine 0.7mg/dL (0.7-1.3) Estimated GFR (Cockcroft-Gault) 115.8 Glucose Level 99mg/dL (70-99) Calcium Level 8.8mg/dL (8.5-10.1) Laboratory Tests Test 02/06/17 17:55 02/07/17 04:35 Erythrocyte Sedimentation Rate 47 (0-15) Prothrombin Time 35.5SEC (11.7-14.0) Prothromb Time International Ratio 3.8 (0.8-1.1) Troponin I Quantitative 0.021ng/mL (0.000-0.055) < 0.017ng/mL (0.000-0.055) Vitamin B12 Level 306pg/mL (247-911) Serum Folate 17.09ng/ml (3.2-20.0) Thyroid Stimulating Hormone (TSH) 0.692uIU/mL (0.358-3.74) Phenytoin (Dilantin) Level 12.7mcg/mL (10.0-20.0) Phenytoin Last Dose Date Unk Phenytoin Last Dose Time Unk White Blood Count 10.0x10^3/uL (4.0-11.0) Red Blood Count 3.87x10^6/uL (4.30-5.70) Hemoglobin 11.9g/dL (13.0-17.5) Hematocrit 35.4% (39.0-53.0) Mean Corpuscular Volume 92fL (79-100) Mean Corpuscular Hemoglobin 31pg (25-35) Mean Corpuscular Hemoglobin Concent 34g/dL (31-37) Red Cell Distribution Width 14.3% (11.5-14.5) Platelet Count 239x10^3/uL (140-400) Neutrophils (%) (Auto) 61% (31-73) Lymphocytes (%) (Auto) 27% (24-48) Monocytes (%) (Auto) 10% (0-9) Eosinophils (%) (Auto) 1% (0-3) Basophils (%) (Auto) 1% (0-3) Neutrophils # (Auto) 6.1x10^3uL (1.8-7.7) Lymphocytes # (Auto) 2.7x10^3/uL (1.0-4.8) Monocytes # (Auto) 1.0x10^3/uL (0.0-1.1) Eosinophils # (Auto) 0.1x10^3/uL (0.0-0.7) Basophils # (Auto) 0.1x10^3/uL (0.0-0.2) Sodium Level 143mmol/L (136-145) Potassium Level 3.2mmol/L (3.5-5.1) Chloride Level 105mmol/L (98-107) Carbon Dioxide Level 28mmol/L (21-32) Anion Gap 10 (6-14) Blood Urea Nitrogen 11mg/dL (8-26) Creatinine 0.7mg/dL (0.7-1.3) Estimated GFR (Cockcroft-Gault) 115.8 Glucose Level 99mg/dL (70-99) Calcium Level 8.8mg/dL (8.5-10.1) Medications Current Medications Lorazepam (Ativan) 2 mg STK-MED ONCE .ROUTE ; Start 02/06/17 at 09:03; Stop at 09:04; Status DC Ondansetron HCl (Zofran) 4 mg PRN Q8HRS PRN IV NAUSEA/VOMITING; Start 02/06/17 at 09:45; Stop 02/07/17 at 09:44; Status DC Morphine Sulfate 2 mg PRN Q2HR PRN IV PAIN Last administered on 02/07/17 06:42 ; Start 02/06/17 at 09:45; Stop 02/07/17 at 09:44; Status DC Lorazepam (Ativan) 2 mg 1X ONCE IV Last administered on 02/06/17 09:02; Start 02/06/17 at 09:45; Stop 02/06/17 at 09:46; Status DC Naloxone HCl (Narcan) 0.4 mg 1X ONCE IV Last administered on 02/06/17 14:10; Start 02/06/17 at 14:00; Stop 02/06/17 at 14:05; Status DC Acetaminophen (Tylenol) 325 mg PRN Q6HRS PRN PO MILD PAIN / TEMP; Start at 14:15 Acetaminophen/ Hydrocodone Bitart (Lortab 5/325) 1 tab PRN Q6HRS PRN PO MODERATE TO SEVERE PAIN; Start 02/06/17 at 14:15 Hydralazine HCl (Apresoline) 10 mg PRN Q4HRS PRN IVP ELEVATED BP, SEE COMMENTS ; Start 02/06/17 at 14:15 Ondansetron HCl (Zofran) 4 mg PRN Q8HRS PRN IV NAUSEA/VOMITING; Start 02/06/17 at 14:15 Albuterol Sulfate 2.5 mg 2.5 mg PRN Q4HRS PRN NEB SHORTNESS OF BREATH; Start at 14:15 Levetiracetam/ Sodium Chloride (Keppra/Iv Sodium Chloride 0.9% 100ml) 107.5 ml @ 400 mls/hr Q12HR IV Last administered on 02/06/17 23:41; Start 02/06/17 at 15:00; Stop 02/07/17 at 08:37; Status DC Amitriptyline HCl (Elavil) 50 mg QHS PO Last administered on 02/06/17 20:09; Start 02/06/17 at 21:00 Atorvastatin Calcium (Lipitor) 40 mg QHS PO Last administered on 02/06/17 20: 10; Start 02/06/17 at 21:00 Citalopram Hydrobromide (Celexa) 20 mg DAILY PO Last administered on 02/07/17 08:41; Start 02/06/17 at 16:00 Cyanocobalamin (Vitamin B-12) 1,000 mcg DAILY PO Last administered on 08:40; Start 02/06/17 at 16:00 Diphenoxylate HCl/ Atropine (Lomotil) 1 tab Q6HRS PO ; Start 02/06/17 at 18:00; Stop 02/06/17 at 18:00; Status DC Folic Acid (Folic Acid) 1 mg DAILY PO Last administered on 02/07/17 08:40; Start 02/06/17 at 16:00 Hydralazine HCl (Apresoline) 10 mg QID PO Last administered on 02/07/17 08:41 ; Start 02/06/17 at 17:00 Lisinopril (Prinivil) 10 mg DAILY PO Last administered on 02/07/17 08:41; Start 02/06/17 at 16:00 Lorazepam (Ativan) 0.5 mg PRN Q6HRS PRN PO ANXIETY / AGITATION; Start 02/06/17 at 14:45 Morphine Sulfate (Morphine Ir) 15 mg PRN Q6HRS PRN PO PAIN MILD TO MOD Last administered on 02/07/17 03:50; Start 02/06/17 at 14:45 Phenytoin Sodium (Dilantin) 100 mg BID PO Last administered on 02/06/17 20:09 ; Start 02/06/17 at 21:00; Stop 02/07/17 at 08:37; Status DC Temazepam (Restoril) 30 mg PRN QHS PRN PO INSOMNIA; Start 02/06/17 at 14:45 Warfarin Sodium (Coumadin) 5 mg DAILY16 PO ; Start 02/07/17 at 16:00; Status Future hold Duloxetine HCl (Cymbalta) 60 mg DAILY PO Last administered on 02/07/17 08:40; Start 02/06/17 at 16:00 Gabapentin (Neurontin) 60 mg TID PO ; Start 02/06/17 at 21:00; Stop 02/06/17 at 22:41; Status DC Morphine Sulfate (Ms Contin) 60 mg BID PO Last administered on 02/07/17 08:42 ; Start 02/06/17 at 21:00 Pregabalin (Lyrica) 150 mg BID PO Last administered on 02/07/17 08:40; Start 02/06/17 at 21:00 Promethazine HCl (Phenergan) 25 mg PRN Q6HRS PRN PO NAUSEA/VOMITING; Start at 15:45 Diphenoxylate HCl/ Atropine (Lomotil) 1 tab PRN Q6HRS PRN PO DIARRHEA; Start at 18:00 Warfarin Sodium (Coumadin Per Physician) 1 each PRN DAILY PRN MC SEE COMMENTS; Start 02/06/17 at 15:45 Gabapentin (Neurontin) 600 mg TID PO Last administered on 02/07/17 08:40; Start 02/06/17 at 22:41 Phenytoin Sodium (Dilantin) 200 mg BID PO Last administered on 02/07/17 09:24 ; Start 02/07/17 at 09:00 Levetiracetam (Keppra) 750 mg BID PO Last administered on 02/07/17 09:24; Start 02/07/17 at 09:00 Active Scripts Active Dilantin (Phenytoin Sodium Extended) 100 Mg Capsule 3 Cap PO BID Vitamin B-12 (Cyanocobalamin (Vitamin B-12)) 1,000 Mcg Tablet 1,000 Mcg PO DAILY Gabapentin 600 Mg Tablet 600 Mg PO TID Alprazolam 0.5 Mg Tablet 0.5 Mg PO PRN Q6HRS PRN Reported Keppra (Levetiracetam) 500 Mg Tablet 1 Tab PO BID Morphine Sulfate Er (Morphine Sulfate) 60 Mg Cap.er.pel 60 Mg PO BID Morphine Sulfate 15 Mg Tablet 1 Tab PO Q6HRS Lorazepam 0.5 Mg Tablet 1-2 Tab PO Q6HRS Lomotil Tablet (Diphenoxylate Hcl/Atropine) 1 Each Tablet 1 Tab PO Q6HRS PRN Promethazine Hcl 25 Mg Tablet 1 Tab PO PRN Q6HRS Cymbalta (Duloxetine Hcl) 60 Mg Capsule.dr 1 Cap PO DAILY Morphine Sulfate Er (Morphine Sulfate) 15 Mg Tablet.er 4 Tab PO BID Coumadin (Warfarin Sodium) 5 Mg Tablet 1 Tab PO DAILY Amitriptyline Hcl 50 Mg Tablet 1 Tab PO QHS Folic Acid 1 Mg Tablet 1 Tab PO DAILY Ventolin Hfa Inhaler (Albuterol Sulfate) 18 Gm Hfa.aer.ad 2 Puff INH Q4HRS Temazepam 30 Mg Capsule 30 Mg PO HS PRN Proair Hfa Inhaler (Albuterol Sulfate) 8.5 Gm Hfa.aer.ad 1 Puff INH PRN Q6HRS PRN Lyrica (Pregabalin) 150 Mg Capsule 150 Mg PO BID 30 Days Lisinopril 10 Mg Tablet 10 Mg PO DAILY Hydralazine Hcl 10 Mg Tablet 10 Mg PO QID Citalopram Hbr (Citalopram Hydrobromide) 20 Mg Tablet 20 Mg PO DAILY Atorvastatin Calcium 40 Mg Tablet 40 Mg PO DAILY Vitals/I & O Vital Sign - Last 24 Hours 02/06/17 02/06/17 02/06/17 02/06/17 11:30 11:30 11:50 12:00 Temp 98.0 98.0 Pulse 110 108 106 Resp 20 20 24 B/P 185/90 196/92 193/76 Pulse Ox 98 98 97 O2 Delivery Room Air Room Air Room Air Room Air 02/06/17 02/06/17 02/06/17 02/06/17 14:41 15:30 17:18 17:19 Temp 97.6 97.6 Pulse 112 97 97 97 Resp 26 B/P 202/75 161/100 161/100 161/100 Pulse Ox 100 O2 Delivery Room Air 02/06/17 02/06/17 02/06/1717 19:10 20:00 20:07 20:09 Temp 98.2 98.2 Pulse 91 88 Resp 30 22 B/P 177/81 177/81 Pulse Ox 99 100 O2 Delivery Room Air Room Air Room Air 02/06/17 02/07/17 02/07/17 02/07/17 23:10 00:10 03:10 03:50 Temp 98.3 98.7 98.3 98.7 Pulse 92 83 Resp 16 16 24 18 B/P 143/74 166/73 Pulse Ox 94 94 97 94 O2 Delivery Room Air Room Air Room Air Room Air 02/07/17 02/07/17 02/07/17 02/07/17 04:55 06:42 07:00 07:10 Temp 96.7 96.7 Pulse 73 Resp 18 18 17 B/P 117/63 Pulse Ox 94 94 94 94 O2 Delivery Room Air Room Air Room Air Room Air 02/07/17 02/07/17 02/07/17 02/07/17 08:00 08:41 08:41 08:42 Pulse 73 73 B/P 117/63 117/63 Pulse Ox 94 O2 Delivery Room Air Room Air Intake and Output 02/06/17 02/06/17 02/07/17 15:00 23:00 07:00 Intake Total 60 ml 2027.5 ml Output Total 500 ml 125 ml 800 ml Balance -500 ml -65 ml 1227.5 ml Images EEG shows very mild slowing of background activity, no epileptic activity. ANJALI PELAYO MD Feb 07, 2017 10:33
[2017-02-07] MEDS: LORAZEPAM 0.5 MG TABLET. PO PRN ×2 (10:48→19:14)
[2017-02-07 10:54] VITALS: BP 121/61
--- NOTE | 2017-02-07 12:45 | EEG ---
DATE OF SERVICE: 02/07/2017 EEG #[id number]. OBJECTIVE: The patient is a 56-year-old male with history of seizures, thought to be psychogenic, nonepileptic per 24 hour video study performed six months ago. He returned with altered mental status. DESCRIPTION: This is a digital study. Electrodes are placed according to the international 10-20 system. Bipolar and referential montages are available. INTERPRETATION: The waking background consists of 7-8 Hz, 50-100 microvolt activity, symmetrically distributed over parietooccipital regions and reactive to eye opening. Hyperventilation is not performed. Intermittent photic stimulation is noncontributory. Sleep is not achieved. IMPRESSION: This electroencephalogram with the patient awake only is abnormal because of a mild, diffuse disturbance of cerebral activity. There is no focal, paroxysmal, or epileptiform activity. The slowing of background may be seen in any of a variety of toxic or metabolic encephalopathies. Thank you for letting us help with the patient's care. ANJALI PELAYO MD DR: JAMES/zee JOB#: [id number] / [id number] DUY Duarte MD, SRINIVASA MD
--- NOTE | 2017-02-07 13:28 | PDOC ---
PROGRESS NOTES Chief Complaint Chief Complaint (Pseudo) seizure ASSESSMENT: 1. Suspected seizure-like activity: mult presentations over past year for same , all w/o epileptic focus on EEG. appreciate Dr Vaughan's input 2. Hx CVA with R sided hemiparesis 3. DJD: on massive doses of narcotics as well as both gabapentin and lyrica with high sedative potential. more awake with ongonig hospitalization. suspect (inadvertent) overdose, as he is requesting med again minutes after receiving a dose 4. Depression: on Cymbalta, celexa. supect other pathology as well. would greatly benefit from O/P psych eval, but pt resistent to suggestion 4. HTN: well controlled 5. HLD: on statin 6. CAD: hx NM. no acute issues. cont home meds 7. Hx DVTs: on warfarin. 8. Dispo: D/C when cleared by neuro Vitals Vitals Vital Signs Date Time Temp Pulse Resp B/P Pulse Ox O2 Delivery O2 Flow Rate FiO2 02/07/17 12:15 93 Room Air 02/07/17 10:54 98.0 85 20 121/61 98.0 Physical Exam General: Alert, Oriented X3, No acute distress Heart: Regular rate Lungs: Clear Abdomen: Other (obese, firm. organs cannot be palpated) Extremities: No edema Skin: No rashes Labs LABS Laboratory Tests Test 02/06/17 17:55 02/07/17 04:35 Erythrocyte Sedimentation Rate 47 (0-15) Prothrombin Time 35.5SEC (11.7-14.0) Prothromb Time International Ratio 3.8 (0.8-1.1) Troponin I Quantitative 0.021ng/mL (0.000-0.055) < 0.017ng/mL (0.000-0.055) Vitamin B12 Level 306pg/mL (247-911) Serum Folate 17.09ng/ml (3.2-20.0) Thyroid Stimulating Hormone (TSH) 0.692uIU/mL (0.358-3.74) Phenytoin (Dilantin) Level 12.7mcg/mL (10.0-20.0) Phenytoin Last Dose Date Unk Phenytoin Last Dose Time Unk White Blood Count 10.0x10^3/uL (4.0-11.0) Red Blood Count 3.87x10^6/uL (4.30-5.70) Hemoglobin 11.9g/dL (13.0-17.5) Hematocrit 35.4% (39.0-53.0) Mean Corpuscular Volume 92fL (79-100) Mean Corpuscular Hemoglobin 31pg (25-35) Mean Corpuscular Hemoglobin Concent 34g/dL (31-37) Red Cell Distribution Width 14.3% (11.5-14.5) Platelet Count 239x10^3/uL (140-400) Neutrophils (%) (Auto) 61% (31-73) Lymphocytes (%) (Auto) 27% (24-48) Monocytes (%) (Auto) 10% (0-9) Eosinophils (%) (Auto) 1% (0-3) Basophils (%) (Auto) 1% (0-3) Neutrophils # (Auto) 6.1x10^3uL (1.8-7.7) Lymphocytes # (Auto) 2.7x10^3/uL (1.0-4.8) Monocytes # (Auto) 1.0x10^3/uL (0.0-1.1) Eosinophils # (Auto) 0.1x10^3/uL (0.0-0.7) Basophils # (Auto) 0.1x10^3/uL (0.0-0.2) Sodium Level 143mmol/L (136-145) Potassium Level 3.2mmol/L (3.5-5.1) Chloride Level 105mmol/L (98-107) Carbon Dioxide Level 28mmol/L (21-32) Anion Gap 10 (6-14) Blood Urea Nitrogen 11mg/dL (8-26) Creatinine 0.7mg/dL (0.7-1.3) Estimated GFR (Cockcroft-Gault) 115.8 Glucose Level 99mg/dL (70-99) Calcium Level 8.8mg/dL (8.5-10.1) Review of Systems Review of Systems c/o back pain, worse since fall at home recently. noted ventral hernia when getting up from seated position ASHLEY BORREGO MD Feb 07, 2017 13:28
[2017-02-07] MEDS ORDERED: DEXTROSE 50% 25 GM / 50ML DISP.SYRIN. IV PRN (15:15)
[2017-02-07 15:21] VITALS: BP 126/68
[2017-02-07] MEDS ORDERED: POTASSIUM CHLORIDE 20 MEQ TABLET.ER. PO ONE (15:30)
[2017-02-07] MEDS ORDERED: WARFARIN 5 MG TABLET. PO SCH (16:00)
[2017-02-07] MEDS: INSULIN ASPART 300 UNITS/3 ML INSULN.PEN SQ SCH (17:00)
[2017-02-07 19:00] VITALS: BP 141/74
[2017-02-07] MEDS: AMITRIPTYLINE HCL 50 MG TABLET PO SCH (21:02)
[2017-02-07] MEDS: ATORVASTATIN CALCIUM 40 MG TABLET. PO SCH (21:03)
[2017-02-07 23:33] VITALS: BP 128/71
[2017-02-08] MEDS: MORPHINE IR 15 MG TABLET PO PRN (00:38)
[2017-02-08] MEDS: LORAZEPAM 0.5 MG TABLET. PO PRN ×2 (02:38→09:24)
[2017-02-08 03:10] VITALS: BP 132/71
[2017-02-08 03:39] LABS: INR 2.5 (0.8-1.1); PROTHROMBIN TIME PATIENT 25.3 SEC (11.7-14.0)
[2017-02-08] MEDS: HYDROCODONE/APAP 5/325MG TABLET. PO PRN ×2 (05:37→12:44)
[2017-02-08 07:00] VITALS: BP 120/55
[2017-02-08] MEDS: INSULIN ASPART 300 UNITS/3 ML INSULN.PEN SQ SCH ×2 (08:00→12:00)
[2017-02-08] MEDS: HYDRALAZINE 10 MG TABLET PO SCH ×2 (09:00→13:00)
[2017-02-08] MEDS: PHENYTOIN SODIUM EXTENDED 100 MG CAPSULE PO SCH (09:17)
[2017-02-08] MEDS: FOLIC ACID 1 MG TABLET PO SCH (09:17)
[2017-02-08] MEDS: LISINOPRIL 10 MG TABLET PO SCH (09:17)
[2017-02-08] MEDS: LEVETIRACETAM 500 MG TABLET PO SCH (09:18)
[2017-02-08] MEDS: GABAPENTIN 300 MG CAPSULE. PO SCH (09:18)
[2017-02-08] MEDS: CYANOCOBALAMIN (VITAMIN B-12) 1,000 MCG TABLET. PO SCH (09:18)
[2017-02-08] MEDS: CITALOPRAM 20 MG TABLET. PO SCH (09:18)
[2017-02-08] MEDS: DULOXETINE HCL 30 MG CAPSULE.DR. PO SCH (09:18)
[2017-02-08] MEDS: MORPHINE ER 30 MG TABLET.ER PO SCH (09:18)
[2017-02-08] MEDS: PREGABALIN 75 MG CAPSULE PO SCH (09:19)
[2017-02-08 10:28] VITALS: BP 127/67
--- NOTE | 2017-02-08 12:04 | PDOC ---
PROGRESS NOTES Assessment Problems Medical Problems: (1) Altered mental status Status: Acute Seizures, psychogenic nonepileptic. History of right middle cerebral artery stroke No evidence of acute central nervous system infection Chronic narcotic use, he did receive Narcan. Suspect personality disorder. Plan Continue levetiracetam Dilantin taper written in nursing orders Consider outpatient psychiatry consult. Patient says that he is smarter than all of the psychiatrists. Okay for discharge Follow-up with neurology in 6 weeks. Subjective He says that he is having fevers but none is recorded in the chart. He says that he is smarter than all of the psychiatrist and does not want to see any. Objective Vital Signs Date Time Temp Pulse Resp B/P Pulse Ox O2 Delivery O2 Flow Rate FiO2 02/08/17 10:28 98.1 60 18 127/67 98 Room Air 98.1 Intake and Output 02/08/17 07:00 Intake Total 1740 ml Output Total 1800 ml Balance -60 ml Intake Oral 1740 ml Output Urine Total 1800 ml PHYSICAL EXAM Alert. Oriented to place and person. PERRL. EOMI. CN: no focal findings. Muscle tone: normal. Muscle strength: 4/5 left hemiparesis DTR: 2+ Plantar reflex: flexor Gait: not examined in bed. Sensory exam: no abnormal findings. No cerebellar signs elicited. Review of Relevant I have reviewed the following items luis (where applicable) has been applied. Labs Laboratory Tests Test 02/06/17 17:55 02/06/17 18:00 02/07/17 04:35 02/07/17 16:44 Erythrocyte Sedimentation Rate 47 (0-15) Prothrombin Time 35.5SEC (11.7-14.0) Prothromb Time International Ratio 3.8 (0.8-1.1) Troponin I Quantitative 0.021ng/mL (0.000-0.055) < 0.017ng/mL (0.000-0.055) Vitamin B12 Level 306pg/mL (247-911) Serum Folate 17.09ng/ml (3.2-20.0) Thyroid Stimulating Hormone (TSH) 0.692uIU/mL (0.358-3.74) Phenytoin (Dilantin) Level 12.7mcg/mL (10.0-20.0) Phenytoin Last Dose Date Unk Phenytoin Last Dose Time Unk Nasal Screen MRSA (PCR) Negative (Negative) White Blood Count 10.0x10^3/uL (4.0-11.0) Red Blood Count 3.87x10^6/uL (4.30-5.70) Hemoglobin 11.9g/dL (13.0-17.5) Hematocrit 35.4% (39.0-53.0) Mean Corpuscular Volume 92fL (79-100) Mean Corpuscular Hemoglobin 31pg (25-35) Mean Corpuscular Hemoglobin Concent 34g/dL (31-37) Red Cell Distribution Width 14.3% (11.5-14.5) Platelet Count 239x10^3/uL (140-400) Neutrophils (%) (Auto) 61% (31-73) Lymphocytes (%) (Auto) 27% (24-48) Monocytes (%) (Auto) 10% (0-9) Eosinophils (%) (Auto) 1% (0-3) Basophils (%) (Auto) 1% (0-3) Neutrophils # (Auto) 6.1x10^3uL (1.8-7.7) Lymphocytes # (Auto) 2.7x10^3/uL (1.0-4.8) Monocytes # (Auto) 1.0x10^3/uL (0.0-1.1) Eosinophils # (Auto) 0.1x10^3/uL (0.0-0.7) Basophils # (Auto) 0.1x10^3/uL (0.0-0.2) Sodium Level 143mmol/L (136-145) Potassium Level 3.2mmol/L (3.5-5.1) Chloride Level 105mmol/L (98-107) Carbon Dioxide Level 28mmol/L (21-32) Anion Gap 10 (6-14) Blood Urea Nitrogen 11mg/dL (8-26) Creatinine 0.7mg/dL (0.7-1.3) Estimated GFR (Cockcroft-Gault) 115.8 Glucose Level 99mg/dL (70-99) Calcium Level 8.8mg/dL (8.5-10.1) Glucose (Fingerstick) 84mg/dL (70-99) Test 02/07/17 20:46 02/08/17 03:15 02/08/17 07:35 Glucose (Fingerstick) 93mg/dL (70-99) 152mg/dL (70-99) Prothrombin Time 25.3SEC (11.7-14.0) Prothromb Time International Ratio 2.5 (0.8-1.1) Laboratory Tests Test 02/07/17 16:44 02/07/17 20:46 02/08/17 03:15 02/08/17 07:35 Glucose (Fingerstick) 84mg/dL (70-99) 93mg/dL (70-99) 152mg/dL (70-99) Prothrombin Time 25.3SEC (11.7-14.0) Prothromb Time International Ratio 2.5 (0.8-1.1) Medications Current Medications Lorazepam (Ativan) 2 mg STK-MED ONCE .ROUTE ; Start 02/06/17 at 09:03; Stop at 09:04; Status DC Ondansetron HCl (Zofran) 4 mg PRN Q8HRS PRN IV NAUSEA/VOMITING; Start 02/06/17 at 09:45; Stop 02/07/17 at 09:44; Status DC Morphine Sulfate 2 mg PRN Q2HR PRN IV PAIN Last administered on 02/07/17 06:42 ; Start 02/06/17 at 09:45; Stop 02/07/17 at 09:44; Status DC Lorazepam (Ativan) 2 mg 1X ONCE IV Last administered on 02/06/17 09:02; Start 02/06/17 at 09:45; Stop 02/06/17 at 09:46; Status DC Naloxone HCl (Narcan) 0.4 mg 1X ONCE IV Last administered on 02/06/17 14:10; Start 02/06/17 at 14:00; Stop 02/06/17 at 14:05; Status DC Acetaminophen (Tylenol) 325 mg PRN Q6HRS PRN PO MILD PAIN / TEMP; Start at 14:15 Acetaminophen/ Hydrocodone Bitart (Lortab 5/325) 1 tab PRN Q6HRS PRN PO MODERATE TO SEVERE PAIN Last administered on 02/08/17 05:37; Start 02/06/17 at 14:15 Hydralazine HCl (Apresoline) 10 mg PRN Q4HRS PRN IVP ELEVATED BP, SEE COMMENTS ; Start 02/06/17 at 14:15 Ondansetron HCl (Zofran) 4 mg PRN Q8HRS PRN IV NAUSEA/VOMITING; Start 02/06/17 at 14:15 Albuterol Sulfate 2.5 mg 2.5 mg PRN Q4HRS PRN NEB SHORTNESS OF BREATH; Start at 14:15 Levetiracetam/ Sodium Chloride (Keppra/Iv Sodium Chloride 0.9% 100ml) 107.5 ml @ 400 mls/hr Q12HR IV Last administered on 02/06/17 23:41; Start 02/06/17 at 15:00; Stop 02/07/17 at 08:37; Status DC Amitriptyline HCl (Elavil) 50 mg QHS PO Last administered on 02/07/17 21:02; Start 02/06/17 at 21:00 Atorvastatin Calcium (Lipitor) 40 mg QHS PO Last administered on 02/07/17 21: 03; Start 02/06/17 at 21:00 Citalopram Hydrobromide (Celexa) 20 mg DAILY PO Last administered on 02/08/17 09:18; Start 02/06/17 at 16:00 Cyanocobalamin (Vitamin B-12) 1,000 mcg DAILY PO Last administered on 09:18; Start 02/06/17 at 16:00 Diphenoxylate HCl/ Atropine (Lomotil) 1 tab Q6HRS PO ; Start 02/06/17 at 18:00; Stop 02/06/17 at 18:00; Status DC Folic Acid (Folic Acid) 1 mg DAILY PO Last administered on 02/08/17 09:17; Start 02/06/17 at 16:00 Hydralazine HCl (Apresoline) 10 mg QID PO Last administered on 02/08/17 09:00 ; Start 02/06/17 at 17:00 Lisinopril (Prinivil) 10 mg DAILY PO Last administered on 02/08/17 09:17; Start 02/06/17 at 16:00 Lorazepam (Ativan) 0.5 mg PRN Q6HRS PRN PO ANXIETY / AGITATION Last administered on 02/08/17 09:24; Start 02/06/17 at 14:45 Morphine Sulfate (Morphine Ir) 15 mg PRN Q6HRS PRN PO PAIN MILD TO MOD Last administered on 02/08/17 00:38; Start 02/06/17 at 14:45 Phenytoin Sodium (Dilantin) 100 mg BID PO Last administered on 02/06/17 20:09 ; Start 02/06/17 at 21:00; Stop 02/07/17 at 08:37; Status DC Temazepam (Restoril) 30 mg PRN QHS PRN PO INSOMNIA Last administered on 21:00; Start 02/06/17 at 14:45 Warfarin Sodium (Coumadin) 5 mg DAILY16 PO ; Start 02/07/17 at 16:00; Status Cancel Duloxetine HCl (Cymbalta) 60 mg DAILY PO Last administered on 02/08/17 09:18; Start 02/06/17 at 16:00 Gabapentin (Neurontin) 60 mg TID PO ; Start 02/06/17 at 21:00; Stop 02/06/17 at 22:41; Status DC Morphine Sulfate (Ms Contin) 60 mg BID PO Last administered on 02/08/17 09:18 ; Start 02/06/17 at 21:00 Pregabalin (Lyrica) 150 mg BID PO Last administered on 02/08/17 09:19; Start 02/06/17 at 21:00 Promethazine HCl (Phenergan) 25 mg PRN Q6HRS PRN PO NAUSEA/VOMITING; Start at 15:45 Diphenoxylate HCl/ Atropine (Lomotil) 1 tab PRN Q6HRS PRN PO DIARRHEA; Start at 18:00 Warfarin Sodium (Coumadin Per Physician) 1 each PRN DAILY PRN MC SEE COMMENTS Last administered on 02/07/17 16:33; Start 02/06/17 at 15:45 Gabapentin (Neurontin) 600 mg TID PO Last administered on 02/08/17 09:18; Start 02/06/17 at 22:41 Phenytoin Sodium (Dilantin) 200 mg BID PO Last administered on 02/08/17 09:17 ; Start 02/07/17 at 09:00 Levetiracetam (Keppra) 750 mg BID PO Last administered on 02/08/17 09:18; Start 02/07/17 at 09:00 Warfarin Sodium (Coumadin) 5 mg DAILY16 PO ; Start 02/08/17 at 16:00 Insulin Aspart (Novolog) 0-7 UNITS TIDWMEALS SQ ; Start 02/07/17 at 17:00 Dextrose 12.5 gm PRN Q15MIN PRN IV SEE COMMENTS; Start 02/07/17 at 15:15 Potassium Chloride (Klor-Con) 40 meq 1X ONCE PO Last administered on 17:24; Start 02/07/17 at 15:30; Stop 02/07/17 at 15:31; Status DC Active Scripts Active Dilantin (Phenytoin Sodium Extended) 100 Mg Capsule 3 Cap PO BID Vitamin B-12 (Cyanocobalamin (Vitamin B-12)) 1,000 Mcg Tablet 1,000 Mcg PO DAILY Gabapentin 600 Mg Tablet 600 Mg PO TID Alprazolam 0.5 Mg Tablet 0.5 Mg PO PRN Q6HRS PRN Reported Keppra (Levetiracetam) 500 Mg Tablet 1 Tab PO BID Morphine Sulfate Er (Morphine Sulfate) 60 Mg Cap.er.pel 60 Mg PO BID Morphine Sulfate 15 Mg Tablet 1 Tab PO Q6HRS Lorazepam 0.5 Mg Tablet 1-2 Tab PO Q6HRS Lomotil Tablet (Diphenoxylate Hcl/Atropine) 1 Each Tablet 1 Tab PO Q6HRS PRN Promethazine Hcl 25 Mg Tablet 1 Tab PO PRN Q6HRS Cymbalta (Duloxetine Hcl) 60 Mg Capsule.dr 1 Cap PO DAILY Morphine Sulfate Er (Morphine Sulfate) 15 Mg Tablet.er 4 Tab PO BID Coumadin (Warfarin Sodium) 5 Mg Tablet 1 Tab PO DAILY Amitriptyline Hcl 50 Mg Tablet 1 Tab PO QHS Folic Acid 1 Mg Tablet 1 Tab PO DAILY Ventolin Hfa Inhaler (Albuterol Sulfate) 18 Gm Hfa.aer.ad 2 Puff INH Q4HRS Temazepam 30 Mg Capsule 30 Mg PO HS PRN Proair Hfa Inhaler (Albuterol Sulfate) 8.5 Gm Hfa.aer.ad 1 Puff INH PRN Q6HRS PRN Lyrica (Pregabalin) 150 Mg Capsule 150 Mg PO BID 30 Days Lisinopril 10 Mg Tablet 10 Mg PO DAILY Hydralazine Hcl 10 Mg Tablet 10 Mg PO QID Citalopram Hbr (Citalopram Hydrobromide) 20 Mg Tablet 20 Mg PO DAILY Atorvastatin Calcium 40 Mg Tablet 40 Mg PO DAILY Vitals/I & O Vital Sign - Last 24 Hours 02/07/17 02/07/17 02/07/17 02/07/17 12:15 14:08 15:21 17:23 Temp 98.1 98.1 Pulse 85 64 64 Resp 18 B/P 121/61 126/68 126/68 Pulse Ox 93 95 O2 Delivery Room Air Room Air 02/07/17 02/07/17 02/07/17 02/07/17 18:15 19:00 20:00 21:02 Temp 98.7 98.7 Pulse 68 68 Resp 16 B/P 141/74 141/74 Pulse Ox 95 95 O2 Delivery Room Air Room Air Room Air 02/07/17 02/07/17 02/08/17 02/08/17 21:03 23:33 00:38 01:05 Temp 99.2 99.2 Pulse 77 Resp 18 16 22 20 B/P 128/71 Pulse Ox 95 96 96 96 O2 Delivery Room Air Room Air Room Air Room Air 02/08/17 02/08/17 02/08/17 02/08/17 01:40 03:10 05:37 06:48 Temp 99.0 99.0 Pulse 88 Resp 20 18 18 18 B/P 132/71 Pulse Ox 96 92 92 92 O2 Delivery Room Air Room Air Room Air Room Air 02/08/17 02/08/17 02/08/17 02/08/17 07:00 07:49 09:00 09:17 Temp 98.4 98.4 Pulse 57 60 64 Resp 18 B/P 120/55 128/72 120/55 Pulse Ox 98 O2 Delivery Room Air Room Air 02/08/17 02/08/17 09:18 10:28 Temp 98.1 98.1 Pulse 60 Resp 18 18 B/P 127/67 Pulse Ox 98 98 O2 Delivery Room Air Room Air Intake and Output 02/07/17 02/07/17 02/08/17 15:00 23:00 07:00 Intake Total 1100 ml 640 ml Output Total 800 ml 1000 ml Balance 300 ml -360 ml APPELBAUM,ANJALI S MD Feb 08, 2017 12:04
[2017-02-08] MEDS ORDERED: PHEN100O3 PO (12:40)
--- NOTE | 2017-02-08 12:42 | PDOC ---
PROGRESS NOTES Chief Complaint Chief Complaint (Pseudo) seizure ASSESSMENT: 1. Suspected seizure-like activity: mult presentations over past year for same , all w/o epileptic focus on EEG. appreciate Dr Vaughan's input 2. Hx CVA with R sided hemiparesis 3. DJD: on massive doses of narcotics as well as both gabapentin and lyrica with high sedative potential. more awake with ongonig hospitalization. suspect (inadvertent) overdose, as he is requesting med again minutes after receiving a dose 4. Depression: on Cymbalta, celexa. supect other pathology as well. would greatly benefit from O/P psych eval, but pt resistent to suggestion 4. HTN: well controlled 5. HLD: on statin 6. CAD: hx MD. no acute issues. cont home meds 7. Hx DVTs: on warfarin. 8. Dispo: D/C home today Vitals Vitals Vital Signs Date Time Temp Pulse Resp B/P Pulse Ox O2 Delivery O2 Flow Rate FiO2 02/08/17 10:28 98.1 60 18 127/67 98 Room Air 98.1 Physical Exam General: Alert, Oriented X3, No acute distress Heart: Regular rate Lungs: Clear Abdomen: Other (obese, firm. organs cannot be palpated) Extremities: No edema Skin: No rashes Labs LABS Laboratory Tests Test 02/07/17 16:44 02/07/17 20:46 02/08/17 03:15 02/08/17 07:35 Glucose (Fingerstick) 84mg/dL (70-99) 93mg/dL (70-99) 152mg/dL (70-99) Prothrombin Time 25.3SEC (11.7-14.0) Prothromb Time International Ratio 2.5 (0.8-1.1) Review of Systems Review of Systems better, still sleepy ASHLEY BORREGO MD Feb 08, 2017 12:42
[2017-02-08] MEDS ORDERED: WARFARIN 5 MG TABLET. PO SCH (16:00)
--- NOTE | 2017-02-08 23:02 | DS ---
DATE OF DISCHARGE: 02/08/2017 CHIEF COMPLAINT: Mental status changes pseudoseizures. HOSPITAL COURSE: The patient is a 56-year-old gentleman with history of CVA and right-sided paresis as well as depression and suspected personality disorder who presented to the Emergency Room with a seizure-like activity. He had been admitted for same multiple times in the recent past, had Neurology workup multiple times with negative EKGs. Nevertheless, he was once again admitted for rule out seizures. This was accomplished with neurologic consult and EEG by Dr. Vaughan. Suspicion was for psychogenic seizure activity, possibly related to psychiatric issues. The patient has significant narcotic use as well as other sedating medications including benzodiazepines, Cymbalta, Lyrica and gabapentin. Discussed with him that decrease in his dosing of various medications would be indicated and elimination of duplicating medications should be undertaken. He is adamant that he is taking all his medications as prescribed. He is reluctant to follow up with a psychiatrist stating that he knows more than all psychiatrists together. DISCHARGE DATE: 02/08/2017 DISCHARGE PHYSICAL EXAMINATION: Please refer to note from same day. DISCHARGE DISPOSITION: To home. DISCHARGE CONDITION: Improved. DISCHARGE DIAGNOSES: 1. Psychogenic seizures (pseudoseizures). 2. Drug overdose. MEDICATIONS: Please refer to MAR. DISCHARGE INSTRUCTIONS: Follow up with PCP TOM. ASHLEY BORREGO MD DR: UR/nts JOB#: [id number] / [id number] DUY Duarte MD MTDD
== END 2017-02-08 14:31 | disposition home or self-care (01) | DRG 918 ==
LOC: EDBD 08:44 → ER 08:44 → 2 NORTH 09:33
PROVIDERS: ADMIT Internal Medicine; ATTEND Internal Medicine
DX: T50.901A Poisoning by unspecified drugs, medicaments and biological substances, accidental (unintentional), initial encounter (principal); G81.91 Hemiplegia, unspecified affecting right dominant side; E78.5 Hyperlipidemia, unspecified; F44.5 Conversion disorder with seizures or convulsions; H91.90 Unspecified hearing loss, unspecified ear; I10 Essential (primary) hypertension; I25.10 Atherosclerotic heart disease of native coronary artery without angina pectoris; J45.909 Unspecified asthma, uncomplicated; K21.9 Gastro-esophageal reflux disease without esophagitis; K58.9 Irritable bowel syndrome, unspecified; M19.90 Unspecified osteoarthritis, unspecified site; Z96.652 Presence of left artificial knee joint; F32.9 Major depressive disorder, single episode, unspecified; F41.9 Anxiety disorder, unspecified; G62.9 Polyneuropathy, unspecified; M54.5 Low back pain; M79.7 Fibromyalgia; Z79.01 Long term (current) use of anticoagulants; Z79.891 Long term (current) use of opiate analgesic; Z85.038 Personal history of other malignant neoplasm of large intestine; Z86.718 Personal history of other venous thrombosis and embolism; Z86.73 Personal history of transient ischemic attack (TIA), and cerebral infarction without residual deficits; I25.2 Old myocardial infarction; Z93.3 Colostomy status; Z95.1 Presence of aortocoronary bypass graft; Y92.89 Other specified places as the place of occurrence of the external cause
CPT/HCPCS: 36415; 70450; 80048; 80076; 80185; 81001; 82140; 82607; 82746; 82947; 83690; 83930; 84443; 84484; 85007; 85027; 85610; 85651; 87641; 95816; 96374; G0481; G6038; J1815; J1953; J2060; J2270; J2310; 80196; 99285-25

== ENCOUNTER 2017-04-10 10:15 | Emergency (ER) | payer MEDICARE ==
[~2017-04-10] VITALS: Ht 172.7 cm; Wt 99.8 kg
[~2017-04-10 10:15] MED LIST changes: +DULO60CA6 PO; +LORA0.5T PO; +MORP15TA PO; +ONDA8TAB9 PO; +PHEN100O3 PO; +PROM25TA10 PO; +WARF-78 PO; -WARF4TAB PO; +WARF4TAB68 PO; -WARF5TAB PO
--- NOTE | 2017-04-10 10:37 | PHYS DOC ---
Past Medical History Past Medical History: CVA, HI, Seizure, Stroke, Other Additional Past Medical Histor: stroke 2008, mi , "seizure activity" , PSUEDO SEIZURES Past Surgical History: Coronary Bypass Surgery, Knee Replacement, Other Additional Past Surgical Histo: L KNEE Alcohol Use: None Drug Use: None Adult General Chief Complaint Chief Complaint: ALTERED MENTAL STATUS HPI HPI Patient is a 56 year old male who presents with altered mental status. Pt call EMS for "shortness of breath" Pt became "unresponsive" while en route. EMS couldn't establish IV and placed R lower leg IO and pt awoke to that and started thrashing around and then again became "unresponsive". Pt reportedly has chronic bradycardia being evaluated by cardiology. Pt had a recent hospitalization for seizures, diagnosed with pseudoseizures and opiate overdose. Pt recommended to see a psychiatrist and pt reportedly stated that he was smarter than all of the psychiatrists. Pt is sleeping upon arrival and won't respond to voice or answer questions. Review of Systems Review of Systems unable to obtain Current Medications Current Medications Current Medications Medications (Trade) Dose Ordered Sig/Jocelyn Start Time Stop Time Status Last Admin Dose Admin Alprazolam (Xanax) 1 mg 1X ONCE 04/10/17 16:00 04/10/17 16:01 04/10/17 15:36 1 MG Aspirin (Erlinda Aspirin) 325 mg 1X ONCE 04/10/17 13:15 04/10/17 13:16 DC 04/10/17 13:38 325 MG Fentanyl Citrate (Fentanyl 2ml Vial) 50 mcg 1X ONCE 04/10/17 16:00 04/10/17 16:01 04/10/17 15:36 50 MCG Lorazepam (Ativan) 1 mg 1X ONCE 04/10/17 11:30 04/10/17 11:31 DC 04/10/17 11:33 1 MG Allergies Allergies Allergies Coded Allergies Type Severity Reaction Last Updated Verified cyclobenzaprine Allergy Intermediate 04/24/16 Yes naproxen Allergy Intermediate 04/24/16 Yes prednisone Allergy Intermediate 04/24/16 Yes Physical Exam Physical Exam Constitutional: Well developed, well nourished, laying on bed without need of O2 and normal resp rate, when I open the pt's eyes he lifts his head up and tried to get off the bed, and I told him to lay down, he laid back down and closed his eyes. HENT: Normocephalic, superficial left forhead erythema (reportedly from a fall 1 week ago), bilateral external ears normal, oropharynx moist, no oral exudates , nose normal. [] Eyes: PERRLA, EOMI, conjunctiva normal, no discharge. [] Neck: Normal range of motion, no tenderness, supple, no stridor. [] Cardiovascular:Heart rate bradycardia with regular rhythm, no murmur [] Lungs & Thorax: Bilateral breath sounds clear to auscultation , no wheeze or crackles Abdomen: soft, no tenderness, no masses, no pulsatile masses. [] Skin: Warm, dry, no erythema, no rash. [] Extremities: no cyanosis, no deformity Neurologic: sleeping, no focal deficits noted. [] Current Patient Data Vital Signs Vital Signs Date Time Temp Pulse Resp B/P (MAP) Pulse Ox O2 Delivery O2 Flow Rate FiO2 04/10/17 15:36 16 96 Room Air 04/10/17 15:05 51 181/82 (115) 04/10/17 10:19 96.7 96.7 Lab Values Laboratory Tests Test 04/10/17 10:50 04/10/17 11:40 04/10/17 14:07 White Blood Count 9.6 x10^3/uL (4.0-11.0) Red Blood Count 4.16 x10^6/uL (4.30-5.70) L Hemoglobin 12.2 g/dL (13.0-17.5) L Hematocrit 37.6 % (39.0-53.0) L Mean Corpuscular Volume 90 fL (79-100) Mean Corpuscular Hemoglobin 29 pg (25-35) Mean Corpuscular Hemoglobin Concent 32 g/dL (31-37) Red Cell Distribution Width 14.8 % (11.5-14.5) H Platelet Count 280 x10^3/uL (140-400) Neutrophils (%) (Auto) 73 % (31-73) Lymphocytes (%) (Auto) 18 % (24-48) L Monocytes (%) (Auto) 7 % (0-9) Eosinophils (%) (Auto) 2 % (0-3) Basophils (%) (Auto) 1 % (0-3) Neutrophils # (Auto) 7.0 x10^3uL (1.8-7.7) Lymphocytes # (Auto) 1.7 x10^3/uL (1.0-4.8) Monocytes # (Auto) 0.7 x10^3/uL (0.0-1.1) Eosinophils # (Auto) 0.1 x10^3/uL (0.0-0.7) Basophils # (Auto) 0.1 x10^3/uL (0.0-0.2) Prothrombin Time 24.4 SEC (11.7-14.0) H Prothrombin Time INR 2.4 (0.8-1.1) H Sodium Level 141 mmol/L (136-145) Potassium Level 4.1 mmol/L (3.5-5.1) Chloride Level 106 mmol/L (98-107) Carbon Dioxide Level 26 mmol/L (21-32) Anion Gap 9 (6-14) Blood Urea Nitrogen 9 mg/dL (8-26) Creatinine 0.7 mg/dL (0.7-1.3) Estimated GFR (Cockcroft-Gault) 115.8 BUN/Creatinine Ratio 13 (6-20) Glucose Level 119 mg/dL (70-99) H Calcium Level 9.0 mg/dL (8.5-10.1) Total Bilirubin 0.2 mg/dL (0.2-1.0) Aspartate Amino Transferase (AST) 33 U/L (15-37) Alanine Aminotransferase (ALT) 47 U/L (16-63) Alkaline Phosphatase 140 U/L (46-116) H Troponin I Quantitative < 0.017 ng/mL (0.000-0.055) Total Protein 7.7 g/dL (6.4-8.2) Albumin 3.3 g/dL (3.4-5.0) L Albumin/Globulin Ratio 0.8 (1.0-1.7) L Phenytoin (Dilantin) Level 10.3 mcg/mL (10.0-20.0) Phenytoin Last Dose Date Unknown Phenytoin Last Dose Time Unknown Ethyl Alcohol Level < 10 mg/dL (0-10) Urine Opiates Screen Neg (NEG) Urine Methadone Screen Neg (NEG) Urine Barbiturates Neg (NEG) Urine Phencyclidine Screen Neg (NEG) Urine Amphetamine/Methamphetamine Neg (NEG) Urine Benzodiazepines Screen Neg (NEG) Urine Cocaine Screen Neg (NEG) Urine Cannabinoids Screen Neg (NEG) Urine Ethyl Alcohol Neg (NEG) POC Troponin I 0.00 ng/ml (<0.08) Laboratory Tests 04/10/17 10:50 Laboratory Tests 04/10/17 10:50 EKG EKG 51 bpm, sinus ami, J point elevation with nonischemic T waves, no ST depression[] Repeat EKG performed when the pt c/o chest pain, shows 44 bpm, sinus ami, persistent J point elevation without acute ST elevation or depression, non ischemic T waves, interpreted by fl Radiology/Procedures Radiology/Procedures CXR: Portable chest, 04/10/2017: History: Shortness of breath Comparison is made to a study from 12/22/2016. The heart is at the upper limits of normal in size. The pulmonary vascularity is normal. No pulmonary infiltrates are seen. There is no evidence of pleural fluid. A surgical plate and screws is evident in the lower cervical spine. IMPRESSION: No acute cardiopulmonary abnormality is detected. [] CT head: CT of the head without contrast, 04/10/2017: History: Altered mental status, recent head trauma Comparison is made to a study from 02/06/2017. There is a large area of encephalomalacia in the right temporoparietal region compatible with an old infarct. There is no shift of the midline structures. There is no evidence of acute intracranial hemorrhage or mass effect. Similar findings were present on the previous study. IMPRESSION: 1. Large old right cerebral infarct. 2. No acute intracranial abnormality is detected. Course & Med Decision Making Course & Med Decision Making Pertinent Labs and Imaging studies reviewed. (See chart for details) pt on cardiac/vascular sonographer, will obtain labs/ua/uds. Pt's symptoms do not appear consistent with a seizure or another specific neurogenic cause. He started to converse more and then started complaining of chest pain. He stated this started as a "burning" pain that started yesterday evening and then developed into a "real pain" early this morning with lightheadedness. Troponin was ordered. CT head ordered, as pt has an abrasion on forehead and no CT head since January. Pt has bradycardia, med list shows metoprolol 25 mg. Asked cardiology to evaluate the pt. They state they do not believe pt has ACS, recommend a second troponin, which was also negative. After pt's extensive workup and waiting for the second troponin, pt made a statement to Martínez, the nurse, stating we should just let him go home and shoot himself. Pt has already shown signs of intermittent psychosis with grandeur thinking, now with suicidal gesture. Contacted [facility] team, he came to evaluate the patient. Pt did not get along with [facility] and stated that he would "kick his ass" if he returned to the room. [facility] contacted the state to come and evaluate the pt. Pt was given Xanax and fentanyl for his symptoms. Transferred care to Dr. Alexis Phoenix pending outcome of psych eval. Affidavit completed by nurse Martínez. Tracey Disclaimer Tracey Disclaimer This electronic medical record was generated, in whole or in part, using a voice recognition dictation system. Departure Departure Impression: Primary Impression: Seizure-like activity Additional Impressions: Drug-seeking behavior Chest pain Suicidal ideation Referrals: DUY ROBBINS (PCP) Problem Qualifiers LEISA JIMENEZ MD April 10, 2017 10:37
--- NOTE | 2017-04-10 11:08 | RAD ---
Portable chest, 04/10/2017: History: Shortness of breath Comparison is made to a study from 12/22/2016. The heart is at the upper limits of normal in size. The pulmonary vascularity is normal. No pulmonary infiltrates are seen. There is no evidence of pleural fluid. A surgical plate and screws is evident in the lower cervical spine. IMPRESSION: No acute cardiopulmonary abnormality is detected.
--- NOTE | 2017-04-10 11:08 | EKG ---
[facility] [address] [place] [address] Test Date: 2017-04-10 Test Time: 10:19:40 Pat Name: RAMONA WELLS Department: Room: Gender: Linux Admin: IN : 1960 Requested By: LEISA JIMENEZ Order Number: [id number] Reading MD: Billy Bell Measurements Intervals [place] Rate: 51 P: 90 [place]: 156 QRS: 56 QRSD: 100 T: 54 QT: 418 QTc: 387 Interpretive Statements SINUS RHYTHM Electronically Signed On 04-11-2017 9:07:34 CDT by Billy Bell
[2017-04-10 11:16] LABS: CREATININE 0.7 mg/dL (0.7-1.3); GFR 115.8; POTASSIUM 4.1 mmol/L (3.5-5.1)
[2017-04-10 11:17] LABS: BASO # 0.1 x10^3/uL (0.0-0.2); BASO % 1 % (0-3); EOS % 2 % (0-3); HEMATOCRIT 37.6 % (39.0-53.0); HEMOGLOBIN 12.2 g/dL (13.0-17.5); INR 2.4 (0.8-1.1); LYMPH # 1.7 x10^3/uL (1.0-4.8); LYMPH % 18 % (24-48); MEAN CORPUSCULAR HEMOGLOBIN 29 pg (25-35); MEAN CORPUSCULAR HGB CONC 32 g/dL (31-37); MEAN CORPUSCULAR VOLUME 90 fL (79-100); MONO % 7 % (0-9); NEUT % 73 % (31-73); PLATELET COUNT 280 x10^3/uL (140-400); PROTHROMBIN TIME PATIENT 24.4 SEC (11.7-14.0); RED BLOOD COUNT 4.16 x10^6/uL (4.30-5.70); RED CELL DISTRIBUTION WIDTH 14.8 % (11.5-14.5); WHITE BLOOD COUNT 9.6 x10^3/uL (4.0-11.0)
[2017-04-10 11:21] LABS: ALBUMIN 3.3 g/dL (3.4-5.0); ALBUMIN/GLOBULIN RATIO 0.8 (1.0-1.7); TOTAL BILIRUBIN 0.2 mg/dL (0.2-1.0); TOTAL PROTEIN 7.7 g/dL (6.4-8.2)
[2017-04-10 12:05] LABS: BARBITURATES NEG (NEG); BENZODIAZEPINES NEG (NEG); CANNABINOIDS NEG (NEG); COCAINE NEG (NEG); METHADONE NEG (NEG); OPIATES NEG (NEG); PHENCYCLIDINE NEG (NEG)
--- NOTE | 2017-04-10 12:09 | EKG ---
[facility] [address] [place] [address] Test Date: 2017-04-10 Test Time: 12:07:05 Pat Name: RAMONA WELLS Department: Room: Gender: Oncologist: : 1960 Requested By: LEISA JIMENEZ Order Number: [id number] Reading MD: Blily Bell Measurements Intervals [place] Rate: 44 P: 90 [place]: 158 QRS: 43 QRSD: 98 T: 42 QT: 442 QTc: 381 Interpretive Statements SINUS RHYTHM Electronically Signed On 04-11-2017 9:08:57 CDT by Billy Bell
--- NOTE | 2017-04-10 13:07 | RAD ---
CT of the head without contrast, 04/10/2017: History: Altered mental status, recent head trauma Comparison is made to a study from 02/06/2017. There is a large area of encephalomalacia in the right temporoparietal region compatible with an old infarct. There is no shift of the midline structures. There is no evidence of acute intracranial hemorrhage or mass effect. Similar findings were present on the previous study. IMPRESSION: 1. Large old right cerebral infarct. 2. No acute intracranial abnormality is detected. PQRS Compliance Statement: One or more of the following individualized dose reduction techniques were utilized for this examination: 1. Automated exposure control 2. Adjustment of the mA and/or kV according to patient size 3. Use of iterative reconstruction technique
[2017-04-10] MEDS ORDERED: ASPIRIN 325 MG TABLET PO ONE (13:15)
--- NOTE | 2017-04-10 13:22 | ACF ---
Admission Forms Criteria MENTAL STATUS CHANGE Clinical Indications for Inpatient Care (Place 'X' for any and all applicable criteria): Ongoing inpatient care may be needed for 1 or more of the following(1)(2)(3)(5)( 6): [X]I. 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 Danger to self or others not manageable at lower level of care [ ]III. Grave disability (eg, inability to perform self care necessary at lower level of care) [ ]IV. Agitation or inappropriate behavior interfering with care for primary condition (eg, attempting to discontinue lines or drains prematurely, unable to cooperate with respiratory care) [ ]V. Delirium [A] [D][E] as described by 1 or more of the following(26): [ ]a) Delirium due to alcohol or sedative [F] withdrawal [ ]b) Delirium of uncertain etiology that has not responded to appropriate empiric treatment [ ]c) Delirium that prevents performance of a life-sustaining function (eg, feeding or hydrating oneself) [ ]. General contraindications and/or Inappropriate clinical situations for Observational Care in patients with Mental Status Change, when ANY ONE of the following is required: [ ]a) Prediction of prolongation of LOS based on ANY ONE of the following may be considered as a contraindication for observational care 2, 3, 4, 5, 6, 7, 8, 9, 10, 11 [ ]i) Age > 65 yrs. [ ]ii) Patient arriving by ambulance [ ]iii) Patient with high acuity [ ]iv) Patient requiring vital sign monitoring [ ]v) Patient on IV medication [ ]b) Systolic blood pressures greater than or equal to 180mmHg 3, 12 [ ]c) Patient with altered mental status including delirium and other alteration of consciousness, (3) [ ]d) Patient whose discharge disposition will be to a jail home or rehabilitation home should not be managed in Emergency Department Observation Unit. CMS rule requires 3 days hospital stay before such placement.3,13 [ ]e) Patient with failure to thrive due to broad array of etiologies 3,16,17 [ ]f) Inability to ambulate 3,14 Extended stay beyond goal length of stay for the primary condition may be needed until ALL of the following are present(3)(5): [ ]a) Underlying medical etiology of mental status change is absent, or has been established and adequately treated [ ]b) Danger to self or others is absent or manageable at lower level of care. [ ]c) Behavior crisis management, including physical or chemical restraints, is not required or available at lower level of car [ ]d) Substance or alcohol withdrawal is absent or manageable at lower level of care. [ ]e) Behavioral symptoms (eg, agitation, somnolence, inappropriate behavior) are absent, or are manageable at lower level of care. The original [facility] content created by [facility] has been revised. The portions of the content which have been revised are identified through the use of italic text or in bold, and [facility] has neither reviewed nor approved the modified material. All other unmodified content is copyright [facility]. Please see references footnoted in the original [facility] edition 2016 Admission Criteria Met?: Yes NANY DAUGHERTY April 10, 2017 13:22
[2017-04-10] MEDS ORDERED: fentaNYL PF VIAL 100 MCG/2 ML VIAL IV ONE ×2 (13:30→16:00)
[2017-04-10] MEDS ORDERED: OXYC10TA PO (13:44)
[2017-04-10] MEDS ORDERED: MORP60TA PO (13:44)
[2017-04-10] MEDS ORDERED: GABA600T2 PO (13:45)
[2017-04-10] MEDS ORDERED: METO25TA9 PO (13:56)
[2017-04-10] MEDS ORDERED: ONDA4TAB12 PO (13:56)
--- NOTE | 2017-04-10 14:12 | PDOC2 ---
CARDIAC CONSULT DATE OF CONSULT Date of Consult DATE: 04/10/17 TIME: 14:02 REASON FOR CONSULT Reason for Consult: bradycardia, chest pain REFERRING PHYSICIAN Referring Physician: Dr. Rodriguez SOURCE Source: Chart review, Patient HISTORY OF PRESENT ILLNESS HISTORY OF PRESENT ILLNESS This is a 56 yo male who presented secondary to altered mental status. EMS initially called for shortness of breath per chart review, although patient does not provide this. Patient reports he was watching television this morning and developed central epigastric pain that radiated up to his central chest and neck and eventually down his left arm. Patient went to go tell about symptoms and suddenly developed vision changes "everything was black" and subsequently passed out. Reports being unconscious until arriving in ED. Per record review, patient was conscious upon EMS arrival and became "unresponsive" en route. EMS was unable to place an IV and subsequently placed a right lower leg IO, which patient awoke. Patient reports associated dizziness, diaphoresis, palpitations, SOA, and nausea. Reports pain worse with applying pressure to chest and with taking a deep breath. Does have a history of GERD and takes over- the-counter antacids PRN. Recently hospitalized for seizures and was diagnosed with pseudoseizures and opiate overdose. PAST MEDICAL HISTORY Cardiovascular: AFIB (paroxysmal ), HTN, Hyperlipidemia Pulmonary: No pertinent hx CENTRAL NERVOUS SYSTEM: CVA, Periperal neuropathy, Seizure GI: GERD, Other (Crohn's Dx, colon CA) Heme/Onc: Other (DVT on warfarin) Psych: Anxiety, Depression Musculoskeletal: Osteoarthritis, Other (DDD) Rheumatologic: Fibromyalgia Infectious disease: No pertinent hx ENT: No pertinent hx Renal/: No pertinent hx Endocrine: Diabetes Dermatology: No pertinent hx PAST SURGICAL HISTORY Past Surgical History: Cholecystectomy, Total knee replacement (left ), Other ( neck sx) FAMILY HISTORY Family History: Alzheimer's Disease, Coronary Artery Disease SOCIAL HISTORY Smoke: No ALCOHOL: none Drugs: None Lives: with Family CURRENT MEDICATIONS CURRENT MEDICATIONS Current Medications Medications (Trade) Dose Ordered Sig/Jocelyn Route PRN Reason Start Time Stop Time Status Last Admin Dose Admin Lorazepam (Ativan) 1 mg 1X ONCE IV 04/10/17 11:30 04/10/17 11:31 DC 04/10/17 11:33 Aspirin (Erlinda Aspirin) 325 mg 1X ONCE PO 04/10/17 13:15 04/10/17 13:16 DC 04/10/17 13:38 Fentanyl Citrate (Fentanyl 2ml Vial) 50 mcg 1X ONCE IV 04/10/17 13:30 04/10/17 13:31 DC 04/10/17 13:42 ALLERGIES ALLERGIES: Coded Allergies: cyclobenzaprine (Verified Allergy, Intermediate, 04/24/16) naproxen (Verified Allergy, Intermediate, 04/24/16) prednisone (Verified Allergy, Intermediate, 04/24/16) ROS Review of System 14 point ROS conducted with pertinent positives noted above in HPI PHYSICAL EXAM General: Alert, Oriented X3, Cooperative, No acute distress Lungs: Clear to auscultation, Normal air movement Heart: No murmurs, Other (tele SB rate 45) Abdomen: Soft, No tenderness Extremities: No edema, Normal pulses Skin: No breakdown, No significant lesion Neuro: Normal speech, Sensation intact Psych/Mental Status: Other (alert, cooperative ) MUSCULOSKELETAL: Osteoarthritic changes both hands VITALS VITALS Vital Signs Date Time Temp Pulse Resp B/P (MAP) Pulse Ox O2 Delivery O2 Flow Rate FiO2 04/10/17 13:42 98 Room Air 04/10/17 11:47 46 16 168/73 (104) 04/10/17 10:19 96.7 96.7 LABS Lab: Laboratory Tests Test 04/10/17 10:50 04/10/17 11:40 White Blood Count 9.6 x10^3/uL (4.0-11.0) Red Blood Count 4.16 x10^6/uL (4.30-5.70) Hemoglobin 12.2 g/dL (13.0-17.5) Hematocrit 37.6 % (39.0-53.0) Mean Corpuscular Volume 90 fL (79-100) Mean Corpuscular Hemoglobin 29 pg (25-35) Mean Corpuscular Hemoglobin Concent 32 g/dL (31-37) Red Cell Distribution Width 14.8 % (11.5-14.5) Platelet Count 280 x10^3/uL (140-400) Neutrophils (%) (Auto) 73 % (31-73) Lymphocytes (%) (Auto) 18 % (24-48) Monocytes (%) (Auto) 7 % (0-9) Eosinophils (%) (Auto) 2 % (0-3) Basophils (%) (Auto) 1 % (0-3) Neutrophils # (Auto) 7.0 x10^3uL (1.8-7.7) Lymphocytes # (Auto) 1.7 x10^3/uL (1.0-4.8) Monocytes # (Auto) 0.7 x10^3/uL (0.0-1.1) Eosinophils # (Auto) 0.1 x10^3/uL (0.0-0.7) Basophils # (Auto) 0.1 x10^3/uL (0.0-0.2) Prothrombin Time 24.4 SEC (11.7-14.0) Prothromb Time International Ratio 2.4 (0.8-1.1) Sodium Level 141 mmol/L (136-145) Potassium Level 4.1 mmol/L (3.5-5.1) Chloride Level 106 mmol/L (98-107) Carbon Dioxide Level 26 mmol/L (21-32) Anion Gap 9 (6-14) Blood Urea Nitrogen 9 mg/dL (8-26) Creatinine 0.7 mg/dL (0.7-1.3) Estimated GFR (Cockcroft-Gault) 115.8 BUN/Creatinine Ratio 13 (6-20) Glucose Level 119 mg/dL (70-99) Calcium Level 9.0 mg/dL (8.5-10.1) Total Bilirubin 0.2 mg/dL (0.2-1.0) Aspartate Amino Transf (AST/SGOT) 33 U/L (15-37) Alanine Aminotransferase (ALT/SGPT) 47 U/L (16-63) Alkaline Phosphatase 140 U/L (46-116) Troponin I Quantitative < 0.017 ng/mL (0.000-0.055) Total Protein 7.7 g/dL (6.4-8.2) Albumin 3.3 g/dL (3.4-5.0) Albumin/Globulin Ratio 0.8 (1.0-1.7) Phenytoin (Dilantin) Level 10.3 mcg/mL (10.0-20.0) Phenytoin Last Dose Date Unknown Phenytoin Last Dose Time Unknown Ethyl Alcohol Level < 10 mg/dL (0-10) Urine Opiates Screen Neg (NEG) Urine Methadone Screen Neg (NEG) Urine Barbiturates Neg (NEG) Urine Phencyclidine Screen Neg (NEG) Urine Amphetamine/Methamphetamine Neg (NEG) Urine Benzodiazepines Screen Neg (NEG) Urine Cocaine Screen Neg (NEG) Urine Cannabinoids Screen Neg (NEG) Urine Ethyl Alcohol Neg (NEG) ECHOCARDIOGRAM ECHOCARDIOGRAM <Conclusion> The left ventricular systolic function is normal. The Ejection Fraction is 60-65%. There is normal LV segmental wall motion. Trace tricuspid regurgitation. The PA pressure was estimated at 19 mmHg. There is no evidence of significant pericardial effusion. DATE: 11/20/16 1734 STRESS TEST STRESS TEST Conclusion 1. Regadenoson cardioisotope stress test did not show any evidence of ischemia or infarct. 2. Normal left ventricular systolic function with ejection fraction calculated at 74%. 3. Low risk for cardiac events. DATE: 11/21/16 1618 ASSESSMENT/PLAN ASSESSMENT/PLAN 1. Chest Pain, atypical initial trop negative. EKG shows SB without acute ischemic changes 11/09 MPI without evidence of ischemia 11/09 echo with normal LV function with an EF of 60-65% Doubt ACS. Pain likely GI in nature as it initiates in epigastric region Obtain 2nd troponin level; if negative, may discharge from a CV standpoint. 2. Bradycardia asymptomatic decrease BB 3. Malignant hypertension, POA now improved. resume home antiHTN therapy 4. Hyperlipidemia 11/13 LDL= 81 on statin therapy 5. h/o DVT on warfarin therapy INR therapeutic 6. PAF maintaining SR with rate control. on warfarin for stroke prevention. 7. Seizure disorder 8. Chronic pain/fibromyalgia 9. GERD recommend daily PPI Problems: SHAYY MANJARREZ APRN April 10, 2017 14:12
[2017-04-10] MEDS ORDERED: ALPRAZolam 0.5 MG TABLET PO ONE (16:00)
[2017-04-10 17:37] VITALS: BP 176/72
== END 2017-04-10 18:30 | disposition home or self-care (01) ==
LOC: ER 10:15
DX: G40.909 Epilepsy, unspecified, not intractable, without status epilepticus (principal); S00.81XA Abrasion of other part of head, initial encounter; R07.89 Other chest pain; R45.851 Suicidal ideations; R41.82 Altered mental status, unspecified; R06.02 Shortness of breath; R10.13 Epigastric pain; R00.1 Bradycardia, unspecified; R42 Dizziness and giddiness; F29 Unspecified psychosis not due to a substance or known physiological condition; M79.7 Fibromyalgia; K21.9 Gastro-esophageal reflux disease without esophagitis; I48.0 Paroxysmal atrial fibrillation; E11.42 Type 2 diabetes mellitus with diabetic polyneuropathy; I10 Essential (primary) hypertension; G89.29 Other chronic pain; M19.90 Unspecified osteoarthritis, unspecified site; I25.2 Old myocardial infarction; F41.9 Anxiety disorder, unspecified; F32.9 Major depressive disorder, single episode, unspecified; E78.5 Hyperlipidemia, unspecified; Z79.01 Long term (current) use of anticoagulants; Z79.899 Other long term (current) drug therapy; Z76.5 Malingerer [conscious simulation]; Z88.8 Allergy status to other drugs, medicaments and biological substances; Z86.73 Personal history of transient ischemic attack (TIA), and cerebral infarction without residual deficits; Z95.1 Presence of aortocoronary bypass graft; Z86.718 Personal history of other venous thrombosis and embolism; X58.XXXA Exposure to other specified factors, initial encounter; Y93.89 Activity, other specified; Y92.89 Other specified places as the place of occurrence of the external cause; Y99.8 Other external cause status
CPT/HCPCS: 36415; 70450; 71010; 80053; 80185; 80305; 80320; 84484; 85027; 85610; 93005; 96374; 96375; 96376; 99285; J2060; J3010; G0480; G0481

== ENCOUNTER 2017-05-25 16:31 | Emergency (ER) | payer MEDICARE ==
[~2017-05-25] VITALS: Ht 175.3 cm; Wt 145.6 kg
[~2017-05-25 16:31] MED LIST changes: +ASPI-612 PO; -ASPI81TA9 PO; +FEXO180T16 PO; -FEXO180T5 PO; +METO25TA9 PO; +MORP60TA PO; -OMEP20TA PO; +OMEP20TA8 PO; +ONDA4TAB12 PO; +OXYC10TA PO; -PHEN100O3 PO; +PHEN100O4 PO
--- NOTE | 2017-05-25 16:58 | PHYS DOC ---
Past Medical History Past Medical History: CVA, [place], Seizure, Stroke, Other Additional Past Medical Histor: stroke 2008, mi , "seizure activity" , PSUEDO SEIZURES Past Surgical History: Coronary Bypass Surgery, Knee Replacement, Other Additional Past Surgical Histo: L KNEE Alcohol Use: None Drug Use: None Adult General Chief Complaint Chief Complaint: SEIZURE HPI HPI Patient is a 56 year old male brought to the ED from home by EMS. Patient states he fell this morning in his house, states he does not know how he fell, struck his forehead. He now complains of a headache. Also reported was a 2-3 minute generalized seizure which resolved on its own. The patient states he has seizures frequently. He has a seizure disorder. He was recently in the hospital for stroke and he had "6 seizures". Patient states the last time he had a stroke that affected his speech. Now he has trouble finding the words. This last stroke was 2-3 weeks ago. Patient denies vomiting. Denies chest pain. 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 Patient states he is on Dilantin and another seizure medicine that he can't remember. States he has been taking them as directed. PCP Dr. Duy Rocha Review of Systems Review of Systems Constitutional: Denies fever or chills [] Eyes: Denies change in visual acuity, redness, or eye pain [] HENT: Denies nasal congestion or sore throat [] Respiratory: Denies cough or shortness of breath [] Cardiovascular: Denies chest pain GI: Denies abdominal pain, nausea, vomiting, bloody stools or diarrhea [] : Denies dysuria or hematuria [] Musculoskeletal: Denies back pain or joint pain [] Integument: Denies rash or skin lesions [] Neurologic: As in history of present illness Allergies Allergies Allergies Coded Allergies Type Severity Reaction Last Updated Verified cyclobenzaprine Allergy Intermediate 04/24/16 Yes naproxen Allergy Intermediate 04/24/16 Yes prednisone Allergy Intermediate 04/24/16 Yes Physical Exam Physical Exam Constitutional: Well developed, well nourished, no acute distress, non-toxic appearance. [] HENT: Normocephalic, atraumatic, bilateral external ears normal, oropharynx moist, no oral exudates, nose normal. [] Eyes: PERRLA, EOMI, conjunctiva normal, no discharge. [] Neck: Normal range of motion, no tenderness, supple, no stridor. [] Cardiovascular:Heart rate regular rhythm, no murmur [] Lungs & Thorax: Bilateral breath sounds clear to auscultation [] Abdomen: Bowel sounds normal, soft, no tenderness, no masses, no pulsatile masses. [] Skin: Warm, dry, no erythema, no rash. [] Back: No tenderness, no CVA tenderness. [] Extremities: No tenderness, no cyanosis, no clubbing, ROM intact, no edema. [] Neurologic: Alert and oriented X 3, normal motor function, normal sensory function, no focal deficits noted. [] Psychologic: Affect normal, judgement normal, mood normal. [] Current Patient Data Vital Signs Vital Signs Date Time Temp Pulse Resp B/P (MAP) Pulse Ox O2 Delivery O2 Flow Rate FiO2 05/25/17 16:31 98.5 68 18 183/79 (113) 96 Room Air 98.5 Lab Values Laboratory Tests Test 05/25/17 17:15 05/25/17 17:39 White Blood Count 7.9 x10^3/uL (4.0-11.0) Red Blood Count 3.95 x10^6/uL (4.30-5.70) L Hemoglobin 11.5 g/dL (13.0-17.5) L Hematocrit 35.4 % (39.0-53.0) L Mean Corpuscular Volume 90 fL (79-100) Mean Corpuscular Hemoglobin 29 pg (25-35) Mean Corpuscular Hemoglobin Concent 33 g/dL (31-37) Red Cell Distribution Width 15.0 % (11.5-14.5) H Platelet Count 198 x10^3/uL (140-400) Neutrophils (%) (Auto) 62 % (31-73) Lymphocytes (%) (Auto) 26 % (24-48) Monocytes (%) (Auto) 8 % (0-9) Eosinophils (%) (Auto) 2 % (0-3) Basophils (%) (Auto) 2 % (0-3) Neutrophils # (Auto) 4.9 x10^3uL (1.8-7.7) Lymphocytes # (Auto) 2.1 x10^3/uL (1.0-4.8) Monocytes # (Auto) 0.6 x10^3/uL (0.0-1.1) Eosinophils # (Auto) 0.2 x10^3/uL (0.0-0.7) Basophils # (Auto) 0.1 x10^3/uL (0.0-0.2) Sodium Level 144 mmol/L (136-145) Potassium Level 4.0 mmol/L (3.5-5.1) Chloride Level 107 mmol/L (98-107) Carbon Dioxide Level 30 mmol/L (21-32) Anion Gap 7 (6-14) Blood Urea Nitrogen 7 mg/dL (8-26) L Creatinine 0.7 mg/dL (0.7-1.3) Estimated GFR (Cockcroft-Gault) 115.8 BUN/Creatinine Ratio 10 (6-20) Glucose Level 96 mg/dL (70-99) Calcium Level 8.5 mg/dL (8.5-10.1) Magnesium Level 2.2 mg/dL (1.8-2.4) Total Bilirubin 0.3 mg/dL (0.2-1.0) Aspartate Amino Transferase (AST) 33 U/L (15-37) Alanine Aminotransferase (ALT) 31 U/L (16-63) Alkaline Phosphatase 130 U/L (46-116) H Troponin I Quantitative < 0.017 ng/mL (0.000-0.055) Total Protein 7.2 g/dL (6.4-8.2) Albumin 3.4 g/dL (3.4-5.0) Albumin/Globulin Ratio 0.9 (1.0-1.7) L Phenytoin (Dilantin) Level 11.1 mcg/mL (10.0-20.0) Phenytoin Last Dose Date 05/24/17 Phenytoin Last Dose Time 2200 Urine Opiates Screen Pos (NEG) Urine Methadone Screen Neg (NEG) Urine Barbiturates Neg (NEG) Urine Phencyclidine Screen Neg (NEG) Urine Amphetamine/Methamphetamine Neg (NEG) Urine Benzodiazepines Screen Neg (NEG) Urine Cocaine Screen Neg (NEG) Urine Cannabinoids Screen Neg (NEG) Urine Ethyl Alcohol Neg (NEG) Laboratory Tests 05/25/17 17:15 Laboratory Tests 05/25/17 17:15 EKG EKG 12-lead EKG read by me. Sinus rhythm. Heart rate 63. There are no acute ST or T wave changes indicative of ischemia or infarction. No STEMI. 1636 [] Radiology/Procedures Radiology/Procedures [] Course & Med Decision Making Course & Med Decision Making Pertinent Labs and Imaging studies reviewed. (See chart for details) 56-year-old male gives a history that he fell down and struck his head today, gives a history that he had a generalized self-limited seizure. Patient states he has a seizure disorder and takes medications for that. Patient has a history per record of possible nonepileptic seizures/pseudoseizures, also does have a history of CVA. I advised the patient we will check some labs and a CT scan of his head. Labs unremarkable for acute findings. Dilantin level therapeutic at 11. Urine drug screen positive only for opiates which the patient has prescribed to him. CT scan of the head negative for acute findings. Patient remained stable and seizure-free in the emergency department. Patient did request pain medicine while here, but given that his chief complaint and reason for presentation was not pain, I declined to give him additional opiates in the emergency department. [] Dragon Disclaimer Dragon Disclaimer This electronic medical record was generated, in whole or in part, using a voice recognition dictation system. Departure Departure Impression: Primary Impression: Seizure Additional Impression: Head injury Disposition: 01 HOME, SELF-CARE Condition: STABLE Referrals: DUY ROCHA (PCP) Additional Instructions: Today, lab tests in the emergency department were good. CT scan did not show anything that happened today, only the old stroke that we are aware of. Your Dilantin level is within the therapeutic range. Today, it appears that you're stable to be discharged to home. Continue medications as prescribed. See your doctor if symptoms persist. Problem Qualifiers SAMUEL VEGA MD May 25, 2017 16:58
[2017-05-25 17:26] LABS: BASO # 0.1 x10^3/uL (0.0-0.2); BASO % 2 % (0-3); EOS % 2 % (0-3); HEMATOCRIT 35.4 % (39.0-53.0); HEMOGLOBIN 11.5 g/dL (13.0-17.5); LYMPH # 2.1 x10^3/uL (1.0-4.8); LYMPH % 26 % (24-48); MEAN CORPUSCULAR HEMOGLOBIN 29 pg (25-35); MEAN CORPUSCULAR HGB CONC 33 g/dL (31-37); MEAN CORPUSCULAR VOLUME 90 fL (79-100); MONO % 8 % (0-9); NEUT % 62 % (31-73); PLATELET COUNT 198 x10^3/uL (140-400); RED BLOOD COUNT 3.95 x10^6/uL (4.30-5.70); WHITE BLOOD COUNT 7.9 x10^3/uL (4.0-11.0)
[2017-05-25 17:37] LABS: ANION GAP 7 (6-14); BLOOD UREA NITROGEN 7 mg/dL (8-26); BUN/CREATININE RATIO 10 (6-20); CALCIUM 8.5 mg/dL (8.5-10.1); CARBON DIOXIDE 30 mmol/L (21-32); CHLORIDE 107 mmol/L (98-107); CREATININE 0.7 mg/dL (0.7-1.3); GFR 115.8; GLUCOSE 96 mg/dL (70-99); SODIUM 144 mmol/L (136-145)
[2017-05-25 17:43] LABS: ALBUMIN 3.4 g/dL (3.4-5.0); ALBUMIN/GLOBULIN RATIO 0.9 (1.0-1.7); ALK PHOS 130 U/L (46-116); ALT (SGPT) 31 U/L (16-63); AST (SGOT) 33 U/L (15-37); MAGNESIUM 2.2 mg/dL (1.8-2.4); TOTAL BILIRUBIN 0.3 mg/dL (0.2-1.0); TOTAL PROTEIN 7.2 g/dL (6.4-8.2)
[2017-05-25 17:45] LABS: BILIRUBIN,URINE NEGATIVE (NEG); GLUCOSE,URINE NEGATIVE (NEG); NITRITE,URINE NEGATIVE (NEG); PH,URINE 5.5; PROTEIN,URINE NEGATIVE (NEG-TRACE); UROBILINOGEN,URINE 0.2 mg/dL (0.2 mg/dL)
[2017-05-25 17:50] LABS: BARBITURATES NEG (NEG); BENZODIAZEPINES NEG (NEG); CANNABINOIDS NEG (NEG); COCAINE NEG (NEG); METHADONE NEG (NEG); OPIATES POS (NEG); PHENCYCLIDINE NEG (NEG)
--- NOTE | 2017-05-25 17:57 | RAD ---
EXAM: Head CT without contrast. HISTORY: Fall. TECHNIQUE: Computed tomographic images of the head were obtained without contrast. *One or more of the following individualized dose reduction techniques were utilized for this examination: 1. Automated exposure control. 2. Adjustment of the mA and/or kV according to patient size. 3. Use of iterative reconstruction technique. COMPARISON: 02/06/2017. FINDINGS: There is decreased attenuation throughout the right cerebral hemisphere in a middle cerebral artery distribution, consistent with chronic infarction. There is no acute hemorrhage. There are subtle areas of hypodensity within the cerebral white matter, likely due to chronic small vessel disease. There is mild cerebral volume loss. The orbits, paranasal sinuses and mastoid air cells are unremarkable. IMPRESSION: 1. No acute intracranial finding. 2. Chronic infarction within the right middle cerebral artery distribution. 3. Subtle areas of hypodensity within the cerebral white matter, a nonspecific finding likely due to chronic small vessel disease. Electronically signed by: Maisha Camp MD (05/25/2017 5:54 PM)
[2017-05-25 18:05] LABS: BACTERIA,URINE FEW /HPF (0-FEW); SQUAMOUS EPITHELIAL CELL,UR FEW /LPF
[2017-05-25 18:15] LABS: CKMB MASS 0.5 ng/mL (0.0-3.6)
[2017-05-25 18:19] VITALS: BP 195/88
--- NOTE | 2017-05-26 08:50 | EKG ---
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
== END 2017-05-25 18:25 | disposition home or self-care (01) ==
LOC: ER 16:31
DX: S09.90XA Unspecified injury of head, initial encounter (principal); R56.9 Unspecified convulsions; I25.2 Old myocardial infarction; Z96.659 Presence of unspecified artificial knee joint; Z86.73 Personal history of transient ischemic attack (TIA), and cerebral infarction without residual deficits; Z95.1 Presence of aortocoronary bypass graft; Z88.8 Allergy status to other drugs, medicaments and biological substances; W01.198A Fall on same level from slipping, tripping and stumbling with subsequent striking against other object, initial encounter; Y93.89 Activity, other specified; Y92.89 Other specified places as the place of occurrence of the external cause; Y99.8 Other external cause status
CPT/HCPCS: 36415; 70450; 80053; 80185; 80320; 81001; 82553; 83735; 84484; 85027; 87086; 93005; G0480; G0481; 99285-25

== ENCOUNTER 2018-01-14 10:19 | Inpatient (IN) | payer MEDICARE ==
[2018-01-14 11:22] LABS: INR 3.3 (0.8-1.1); PARTIAL THROMBOPLASTIN TIME 71 SEC (24-38); PROTHROMBIN TIME PATIENT 31.8 SEC (11.7-14.0)
[2018-01-14 11:28] LABS: AMMONIA 91 mcmol/L (11-34)
[2018-01-14 11:30] LABS: ANION GAP 9 (6-14); BLOOD UREA NITROGEN 7 mg/dL (8-26); CALCIUM 8.2 mg/dL (8.5-10.1); CARBON DIOXIDE 28 mmol/L (21-32); CHLORIDE 102 mmol/L (98-107); CREATININE 0.5 mg/dL (0.7-1.3); GFR 170.2; GLUCOSE 104 mg/dL (70-99); POTASSIUM 4.1 mmol/L (3.5-5.1); SODIUM 139 mmol/L (136-145)
[2018-01-14 11:35] LABS: TROPONINI < 0.017 ng/mL (0.000-0.055)
[2018-01-14 11:38] LABS: ALK PHOS 106 U/L (46-116); ALT (SGPT) 23 U/L (16-63); AST (SGOT) 15 U/L (15-37); DIRECT BILIRUBIN < 0.1 mg/dL (0.0-0.2); TOTAL BILIRUBIN 0.1 mg/dL (0.2-1.0); TOTAL PROTEIN 6.8 g/dL (6.4-8.2)
[2018-01-14 11:46] LABS: CKMB MASS < 0.5 ng/mL (0.0-3.6); CREATINE KINASE 60 U/L (39-308)
[2018-01-14 11:46] LABS: NT-PRO BNP 27 pg/mL (0-124)
[2018-01-14] MEDS ORDERED: ONDANSETRON PF 4 MG/2 ML VIAL. IV ×2 (14:15→20:30)
[2018-01-14 14:55] LABS: PHENY 13.6 mcg/mL (10.0-20.0)
[2018-01-14 15:01] LABS: VAL ACID 72 mcg/mL (50-100)
[2018-01-14] MEDS: PANTOPRAZOLE 40 MG TABLET.DR. PO (17:00)
[2018-01-14] MEDS: LACTULOSE 20 GM/30 ML SOLUTION. PO (17:25)
[2018-01-14] MEDS ORDERED: NON FORMULARY ITEM (Albuterol Sulfate (Ventolin Hfa Inhaler) 2 PUFF) INH (20:30)
[2018-01-14] MEDS ORDERED: ONDANSETRON ODT 4 MG TAB.RAPDIS. PO (20:30)
[2018-01-14] MEDS ORDERED: METOCLOPRAMIDE 10 MG TABLET. PO (20:30)
[2018-01-14] MEDS ORDERED: BISACODYL 5 MG TABLET.DR. PO (20:30)
[2018-01-14] MEDS ORDERED: TEMAZEPAM 15 MG CAPSULE PO (20:30)
[2018-01-14] MEDS ORDERED: SENNOSIDES 8.6 MG TABLET PO (20:30)
[2018-01-14] MEDS ORDERED: POLYETHYLENE GLYCOL 3350 17 GM PACKET. PO (20:30)
[2018-01-14] MEDS: hydrALAZINE 10 MG TABLET PO (21:00)
[2018-01-14] MEDS ORDERED: NON FORMULARY ITEM (Budesonide/Formoterol Fumarate (Symbicort 80-4.5 Mcg Inhaler) 2 PUFF) IH (21:00)
[2018-01-14] MEDS: IV NORMAL SALINE 1000ML BAG 1,000 ML IV (21:00)
[2018-01-14] MEDS: levETIRAcetam 500 MG TABLET PO (21:00)
[2018-01-14] MEDS: AMITRIPTYLINE HCL 25 MG TABLET. PO (21:00)
[2018-01-14] MEDS: PHENYTOIN SODIUM EXTENDED 100 MG CAPSULE PO (21:00)
[2018-01-14] MEDS ORDERED: ALBUTEROL SULFATE 2.5 MG/3 ML NEBU. NEB (21:45)
[2018-01-14] MEDS: GABAPENTIN 300 MG CAPSULE. PO (22:00)
[2018-01-14] MEDS: diphenhydrAMINE HCL 25 MG CAPSULE PO (22:00)
[2018-01-14] MEDS: DIVALPROEX DELAYED RELEASE 250 MG TABLET.DR. PO (22:00)
[2018-01-14] MEDS: ATORVASTATIN CALCIUM 40 MG TABLET. PO (22:00)
[2018-01-14] MEDS: MORPHINE ER 30 MG TABLET.ER PO (22:00)
[2018-01-14] MEDS ORDERED: oxyCODONE IR 5 MG TABLET PO (22:00)
[2018-01-14 22:22] LABS: POC GLUCOSE 94 mg/dL (70-99)
[2018-01-14 23:35] LABS: POC GLUCOSE 112 mg/dL (70-99)
[2018-01-15] MEDS: MORPHINE IR 15 MG TABLET PO ×2 (03:54→13:09)
[2018-01-15] MEDS: IV NORMAL SALINE 1000ML BAG 1,000 ML IV (07:00)
[2018-01-15] MEDS: ACETAMINOPHEN 325 MG TABLET. PO (07:04)
[2018-01-15] MEDS: ALBUTEROL SULFATE 2.5 MG/3 ML NEBU. NEB (08:00)
[2018-01-15] MEDS: BUDESONIDE 0.5 MG/2 ML NEBU. NEB (08:00)
[2018-01-15 08:07] LABS: POC GLUCOSE 120 mg/dL (70-99)
[2018-01-15] MEDS: MORPHINE ER 30 MG TABLET.ER PO (08:36)
[2018-01-15] MEDS: hydrALAZINE 10 MG TABLET PO ×2 (08:37→13:11)
[2018-01-15] MEDS: PHENYTOIN SODIUM EXTENDED 100 MG CAPSULE PO (08:38)
[2018-01-15] MEDS: PANTOPRAZOLE 40 MG TABLET.DR. PO (08:38)
[2018-01-15] MEDS: DIVALPROEX DELAYED RELEASE 250 MG TABLET.DR. PO ×2 (08:38→13:10)
[2018-01-15] MEDS: levETIRAcetam 500 MG TABLET PO (08:38)
[2018-01-15] MEDS: ASPIRIN CHEWABLE 81 MG TABLET. PO (08:38)
[2018-01-15] MEDS: GABAPENTIN 300 MG CAPSULE. PO ×2 (08:38→13:09)
[2018-01-15] MEDS: DULoxetine HCL 30 MG CAPSULE.DR PO (08:38)
[2018-01-15] MEDS: LISINOPRIL 10 MG TABLET PO (08:39)
[2018-01-15] MEDS: FOLIC ACID 1 MG TABLET. PO (08:39)
[2018-01-15] MEDS ORDERED: NON FORMULARY ITEM (Omeprazole 1 TAB) PO (09:00)
[2018-01-15 12:14] LABS: POC GLUCOSE 100 mg/dL (70-99)
[2018-01-15] MEDS: LORazepam 1 MG TABLET PO (13:09)
[2018-01-15] MEDS ORDERED: WARFARIN 10 MG TABLET. PO (16:00)
[2018-01-15 23:11] LABS: MRSA BY PCR Positive (Negative)
== END 2018-01-15 15:40 | disposition home or self-care (01) | DRG 100 ==
LOC: ER 10:19 → 6 SOUTH 14:00
DX: G40.909 Epilepsy, unspecified, not intractable, without status epilepticus (principal); G92 Toxic encephalopathy; E11.42 Type 2 diabetes mellitus with diabetic polyneuropathy; K50.90 Crohn's disease, unspecified, without complications; I48.91 Unspecified atrial fibrillation; E66.9 Obesity, unspecified; E78.5 Hyperlipidemia, unspecified; Z68.30 Body mass index [BMI] 30.0-30.9, adult; F32.9 Major depressive disorder, single episode, unspecified; F41.9 Anxiety disorder, unspecified; I10 Essential (primary) hypertension; I25.10 Atherosclerotic heart disease of native coronary artery without angina pectoris; I25.2 Old myocardial infarction; J45.909 Unspecified asthma, uncomplicated; K21.0 Gastro-esophageal reflux disease with esophagitis; M79.7 Fibromyalgia; Z85.038 Personal history of other malignant neoplasm of large intestine; Z86.718 Personal history of other venous thrombosis and embolism; Z86.73 Personal history of transient ischemic attack (TIA), and cerebral infarction without residual deficits; Z90.49 Acquired absence of other specified parts of digestive tract; Z93.3 Colostomy status; Z95.1 Presence of aortocoronary bypass graft; Z96.652 Presence of left artificial knee joint; G89.29 Other chronic pain; Z88.6 Allergy status to analgesic agent; Z88.8 Allergy status to other drugs, medicaments and biological substances; M19.90 Unspecified osteoarthritis, unspecified site
CPT/HCPCS: 36415; 70450; 72100; 74018; 80048; 80076; 80164; 80185; 82140; 82553; 82962; 83735; 83880; 84484; 85610; 85730; 87641; 93005; 99285; 99285-25

== ENCOUNTER 2018-04-20 19:15 | Emergency (ER) | payer MEDICARE | END 2018-04-20 21:55 | disposition home or self-care (01) | LOC: ER 21:55 | DX: J18.1 Lobar pneumonia, unspecified organism (principal); I25.2 Old myocardial infarction; I10 Essential (primary) hypertension; E11.9 Type 2 diabetes mellitus without complications; Z86.73 Personal history of transient ischemic attack (TIA), and cerebral infarction without residual deficits; J44.0 Chronic obstructive pulmonary disease with (acute) lower respiratory infection; Z95.5 Presence of coronary angioplasty implant and graft; Z88.5 Allergy status to narcotic agent; Z88.8 Allergy status to other drugs, medicaments and biological substances; Z91.041 Radiographic dye allergy status | CPT/HCPCS: 71046; 99284 ==

== ENCOUNTER → 2019-07-10 | Outpatient (CLI) | payer MEDICARE ==
[2018-04-20 21:00] VITALS: BP 136/84
[~2019-07-10] MED LIST changes: +ACET325T9 PO; +ALBU2.5V8 INH; -AMLO10TA2 PO; +AMLO10TA8 PO; +ASPI-630 PO; +BISA-42 PO; +BUDE10.22 IH; -CITA20TA5 PO; +CITA20TA6 PO; +CONTRAST GIVEN. MC PRN; +CYAN-25 PO; -CYAN10005 PO; +DIPH50CA PO; +DIVA500T17 PO; +GABA300C18 PO; -GABA600T2 PO; +GABA600T7 PO; +IOHEXOL 240 MG/ML 50ML VIAL. PO ONE; +LEVO750T31 PO; +LORA1TAB PO; +METO-239 PO; +METO10TA PO; -METO25TA9 PO; -OXYC5TAB PO; +OXYC5TAB4 PO; +POLY17PO29 PO; -PROAIR HFA8.5 GM INH; +SENN-80 PO; +WARF-31 PO; +WARF1TAB69 PO; -WARF1TAB7 PO; -WARF2TAB7 PO; +WARF2TAB96 PO; -WARF5TAB7 PO
--- NOTE | 2019-07-10 11:21 | RAD ---
PQRS Compliance Statement: One or more of the following individualized dose reduction techniques were utilized for this examination: 1. Automated exposure control 2. Adjustment of the mA and/or kV according to patient size 3. Use of iterative reconstruction technique PQRS Compliance Statement: One or more of the following individualized dose reduction techniques were utilized for this examination: 1. Automated exposure control 2. Adjustment of the mA and/or kV according to patient size 3. Use of iterative reconstruction technique CT abdomen/pelvis without contrast 07/10/2019 10:00 AM INDICATION: Incisional hernia COMPARISON: CT abdomen/pelvis August 03, 2014 TECHNIQUE: Multiple axial CT images of the abdomen and pelvis were obtained without intravenous contrast. Coronal and sagittal reformats are provided. FINDINGS: 2 mm solid noncalcified pulmonary nodule is identified in the right lower lobe. Heart size within normal limits. Evaluation of solid abdominal viscera is limited by lack of intravenous contrast. Liver, spleen, bilateral adrenal glands and pancreas are normal in appearance. The bladder surgically absent. Abdominal aorta is normal in course and caliber. Dense calcified atheromatous plaque is identified involving the abdominal aorta. No pathologically enlarged lymph nodes are identified in abdomen and pelvis. There is no free fluid or free intraperitoneal air. There is a tiny 6 mm ventral abdominal wall hernia containing noninflamed fat, immediately above the umbilicus. Moderate amount stool is noted throughout the colon. Oral contrast was administered. Opacified bowel loops demonstrate normal mucosal fold pattern. Small and large bowel are normal in caliber. There is no evidence for bowel obstruction. There are no pericolonic inflammatory changes. Appendix is not definitively visualized. No pericecal inflammatory changes are identified. The kidneys are relatively symmetric in appearance. There is no suspicious renal mass within the limitations of a noncontrast examination. There is no hydronephrosis. There is a 3 mm nonobstructing calculus in the interpolar left kidney. There is a 2.8 cm suspected cyst along the inferior pole the left kidney. This may be confirmed with ultrasound. Urinary bladder is within normal limits given degree of distention. Prostate and seminal vesicles appear normal. No suspicious osseous normality is identified. IMPRESSION: 1. There is a tiny 6 mm supraumbilical hernia containing fat. Next line 2. No evidence for bowel obstruction or inflammation. 3. 3 mm nonobstructing calculus in the midpole the left kidney. 4. Inferior left renal cystic lesion measures 2.4 cm. Further characterization with renal ultrasound is recommended. This is increased in size from 2014 previously measuring 2.0 cm and currently measuring 2.8 cm. Electronically signed by: Dinah Haq MD (07/10/2019 11:18 AM) [id number]
== END | disposition home or self-care (01) ==
LOC: CT 09:29
PROVIDERS: ATTEND Internal Medicine
DX: K42.9 Umbilical hernia without obstruction or gangrene (principal); N20.0 Calculus of kidney
CPT/HCPCS: 74176; Q9966